=== PATIENT | female | born 1925 | race Caucasian/White ===

== ENCOUNTER 2016-08-03 16:57 | Inpatient (IN) | payer MEDICARE, MEDICAID ==
[~2016-08-03] VITALS: Ht 165.1 cm; Wt 66.2 kg
[~2016-08-03 16:57] MED LIST: CLON0.1T PO; ESOM40CA PO; FLUT1DIS3 IH; LORA-258 PO; MEGE400O4 PO; OLOP2.5D OP; TIOT18CA3 IH
[2016-08-03 17:30] VITALS: BP 140/66
--- NOTE | 2016-08-03 17:30 | NUR ---
MS TIE BUYER 89 YEARS OLD FEMALE, DIRECT ADMIT. PATIENT IS ACCOMPANIED BY HARRAYMOND-FAMILY FROM APPT WITH DR. HERNANDEZ'S OFFFICE TODAY. PATIENT IS AMBULATORY WITH CANE, A/O X1 WITH CONFUSION. HX OF DEMENTIA. HX PROVIDED BY HARUT-FAMILY MEMBER. CALLED SPOKE TO DR. HERNANDEZ, VERIFIED ORDERS NOTED AND ACKNOWLEDGED. ASSISTED PATIENT TO HER ROOM, V/S TAKEN AND RECORDED, NO C/O SHORTNESS OF BREATH. SATING 93% IN RA, WILL PLACE ON OXYGEN VIA NC 2L/MIN TO KEEP OXYGEN > = 92% ORDERED. CALL LIGHT WITHIN REACH, BED LOW AND LOCKED, SIDE RAILS UP X2. WILL PROVIDE 1:1 SITTER ORDERED. BEVERLY-FAMILY AT THE BEDSIDE, HELPING WITH THE TRANSLATION DURING ADMISSION PROCESS.
[2016-08-03] MEDS ORDERED: QUET25TA PO (17:39)
[2016-08-03] MEDS ORDERED: ALBU2TAB4 PO (17:39)
[2016-08-03] MEDS ORDERED: MEMA10TA PO (17:39)
[2016-08-03] MEDS ORDERED: ESCI10TA PO (17:39)
[2016-08-03] MEDS ORDERED: ACET-2605 PO (17:40)
[2016-08-03 18:00] VITALS: BP 140/66
[2016-08-03] MEDS ORDERED: ACETAMINOPHEN 325 MG TABLET PO PRN (18:00)
[2016-08-03] MEDS ORDERED: ONDANSETRON HCL/PF 4 MG/2 ML VIAL IV PRN (18:00)
[2016-08-03] MEDS ORDERED: ALBUTEROL HALF STRENGTH 1.25 MG/3 ML VIAL.NEB NEB PRN (18:00)
[2016-08-03] MEDS ORDERED: CLONIDINE HCL 0.1 MG TABLET PO PRN (18:00)
--- NOTE | 2016-08-03 18:00 | NUR ---
INSERTED ZAMORANO CATH TO GRAVITY. URINE COLLECTED AND SEND TO LAB ORDERED. IV GAUGE 22 INSERTED IN LFA WITH GOOD BLOOD RETURN, PATIENT TOLERATED WELL. SKIN INTACT, ABDOMEN SOFT AND MILDLY DISTENDED, NO C/O CONSTIPATION. WILL CONT TO MONITOR.
[2016-08-03 18:14] LABS: BASOPHILS % (AUTO) 0.4 % (0.0-2.0); EOSINOPHILS # (AUTO) 0.2 /CMM (0.0-0.7); EOSINOPHILS % (AUTO) 1.4 % (0.0-6.0); HEMATOCRIT 35 % (33-45); HEMOGLOBIN 11.4 g/dL (11.5-14.8); LYMPHOCYTES # (AUTO) 1.8 /CMM (0.8-4.8); LYMPHOCYTES % (AUTO) 16.7 % (20.0-44.0); MEAN CORPUSCULAR HEMOGLOBIN 30 PG (26.0-33.0); MEAN CORPUSCULAR HGB CONC 33 g/dl (31.0-36.0); MEAN CORPUSCULAR VOLUME 91 fL (82-100); MONOCYTES # (AUTO) 0.9 /CMM (0.1-1.30); MONOCYTES % (AUTO) 8.6 % (2.0-12.0); NEUTROPHILS % (AUTO) 72.9 % (43.0-81.0); PLATELET COUNT (AUTO) 241 /CMM (150-450); RDW COEFFICIENT OF VARIATION 14.1 (11.5-15.0); RED BLOOD CELL COUNT(AUTO) 3.84 MIL/uL (4.0-5.2); WHITE BLOOD COUNT (AUTO) 10.9 K/uL (4.3-11.0)
[2016-08-03 19:03] LABS: CALCIUM, SERUM 8.4 mg/dL (8.5-10.1); CREATININE 1.5 mg/dL (0.6-1.3); POTASSIUM 3.6 mmol/L (3.5-5.1)
[2016-08-03 19:09] LABS: ALBUMIN 3.4 g/dL (3.4-5.0); BILIRUBIN,TOTAL 0.3 mg/dL (0.2-1.0); TOTAL PROTEIN, SERUM 7.5 g/dL (6.4-8.2)
[2016-08-03] MEDS ORDERED: SECONDARY IV SET 1 EA INFUS.SET MC ONE (19:23)
[2016-08-03] MEDS ORDERED: IV SET PRIMARY PUMP SET 1 EA INFUS.SET MC ONE ×2 (19:24→19:25)
--- NOTE | 2016-08-03 19:30 | NUR ---
MS RN NOTES RECEIVED RESTING COMFORTABLY ON BED,SPEAK FARSI,DEMENTED,SITTER AT BEDSIDE FOR SAFETY.O2 IN USED TO KEEP O2 SAT ABOVE 90%.CALL LIGHT IN REACH,NEEDS ANTICIPATED..
--- NOTE | 2016-08-03 19:30 | NUR ---
MS RN CLOSING NOTES PATIENT IN BED, NOT IN DISTRESS. ON OXYGEN AT 2L/MIN VIA NC, NO SOB NOTED. ENDORSED TO GUN REPAIR CLERK RN FOR CONTINUITY OF CARE.
[2016-08-03] MEDS: IV D5/ 0.9% NACL 1,000 ML IV SCH (19:48)
--- NOTE | 2016-08-03 19:55 | NUR ---
MS RN NOTES STARTED ON D5NS 1LITER AT 75ML/HR RATE VIA IV PUMP ON LFA,SITE PATENT.
[2016-08-03 20:00] VITALS: BP 99/51
[2016-08-03] MEDS ORDERED: LEVOFLOXACIN 500 MG /D5W 100ML 500 MG in PREMIX 1 EA IV SCH (20:00)
--- NOTE | 2016-08-03 20:00 | NUR ---
MS RN NOTES STARTED ON LEVAQUIN 500MG IVPB ORDERED
[2016-08-03] MEDS: methylPREDNISolone SOD SUCC 125 MG/2ML VIAL IV SCH (21:21)
[2016-08-03] MEDS: QUETIAPINE FUMARATE 25 MG TABLET PO SCH (21:21)
[2016-08-03] MEDS: ALBUTEROL HALF STRENGTH 1.25 MG/3 ML VIAL.NEB NEB SCH (21:29)
--- NOTE | 2016-08-03 21:30 | NUR ---
MS RN NOTES RT AT BEDSIDE ADMINISTERING BREATHING SCHEDULED.
[2016-08-03] MEDS ORDERED: LORAZEPAM 0.5 MG TABLET PO PRN (22:00)
[2016-08-04] MEDS: ALBUTEROL HALF STRENGTH 1.25 MG/3 ML VIAL.NEB NEB SCH ×3 (02:00→20:14)
[2016-08-04] MEDS: methylPREDNISolone SOD SUCC 125 MG/2ML VIAL IV SCH ×3 (04:59→21:24)
--- NOTE | 2016-08-04 06:57 | NUR ---
MS RN NOTES NO EPISODE OF SOB.OOB EARLY TO BEDSIDE CHAIR,O2 IN USED.IVF INFUSING.IN NO ACUTE DISTRESS.WILL ENDORSE TO DAY NURSE FOR REINIER
--- NOTE | 2016-08-04 07:30 | NUR ---
RN INITIAL NOTES REPORT WAS RECEIVED. PT IS AWAKE AND SITTING IN THE CHAIR AT BEDSIDE. PT SPEAKS FARSI ONLY. IN NO APPARENT DISTRESS, SO SOB WITH NC. IV ACCESS IN LFA #22 WITH D5NS RUNNING AT 75 ML/HR. SITTER AT BED SIDE. WILL CONTINUE TO MONITOR
[2016-08-04 07:36] LABS: APPEARANCE,URINE CLOUDY (CLEAR); BILIRUBIN,URINE NEGATIVE (NEGATIVE); BLOOD, URINE NEGATIVE Ery/uL (NEGATIVE); COLOR,URINE YELLOW (YELLOW); KETONES,URINE NEGATIVE (NEGATIVE); LEUKOCYTE ESTERASE ,URINE NEGATIVE (NEGATIVE); NITRITE, URINE NEGATIVE (NEGATIVE); PROTEIN,URINE NEGATIVE (NEGATIVE); UGLUCOSE NEGATIVE (NEGATIVE); UROBILINOGEN,URINE 0.2 EU/dL (0.2)
[2016-08-04 08:00] VITALS: BP 154/72
[2016-08-04] MEDS: ALBUTEROL SULFATE 2 MG TABLET PO SCH ×2 (08:51→17:16)
[2016-08-04] MEDS: ESCITALOPRAM OXALATE (10 MG) 10 MG TABLET PO SCH (08:51)
[2016-08-04] MEDS: MEMANTINE HCL 5 MG TABLET PO SCH (08:51)
[2016-08-04] MEDS: PANTOPRAZOLE 40 MG TABLET.DR PO SCH (08:51)
[2016-08-04] MEDS: FLUTICASONE/SALMETEROL DISKUS IH SCH ×2 (08:52→17:16)
[2016-08-04] MEDS: CYANOCOBALAMIN 1,000 MCG/ML VIAL IM SCH (08:52)
[2016-08-04 08:53] LABS: BACTERIA,URINE Few /HPF (None Seen); RBC,URINE NONE SEEN /HPF (0-2); WBC,URINE 0-2 /HPF (0-3)
[2016-08-04 08:54] LABS: SQUAMOUS EPITHELIAL CELL,UR Few /HPF (None Seen); URINE AMORPHOUS URATE Many /HPF (None Seen)
[2016-08-04] MEDS ORDERED: TIOTROPIUM BROMIDE 6 CAP/BOX CAP.W.DEV IH SCH (09:00)
--- NOTE | 2016-08-04 09:21 | NUR ---
MS/RN E-signature Dr Meade made aware that patients admit to order needs to be electronically signed.
[2016-08-04] MEDS: IV D5/ 0.9% NACL 1,000 ML IV SCH ×2 (11:53→21:37)
[2016-08-04 16:00] VITALS: BP 132/69
[2016-08-04 16:10] VITALS: BP 132/69
--- NOTE | 2016-08-04 18:37 | NUR ---
MS RN CLOSING NOTES PT IS ALERT & ORIENTED X 2, SEEMS TO BE CONFUSED AT TIMES. FARSI AND CHINESE SPEAKING. PT IS IN BED RESTING. BED IS IN LOW POSITION AND CALL LIGHT IS WITHIN REACH. PT IS ABLE TO AMBULATE WITH ASSISTANCE. IV ACCESS ON D5NS @75 ML/HR ON LEFT FOREARM #22. PT HAS NOT BEEN WANTING TO EAT MUCH DURING MEALS AND HAVE HAD TO ORDER SANDWICHES IN BETWEEN. ECHOCARDIOGRAM WAS DONE AND RESULTS ARE PENDING. DAUGHTER WOULD LIKE TO BE CONTACTED WITH ANY CHANGES, PHONE NUMBER IS POSTED ON THE WHITE BOARD. WILL HAND OFF REPORT TO RADIOLOGY TECHNOLOGIST
--- NOTE | 2016-08-04 19:30 | NUR ---
MS RN NOTES RECEIVED PT SITTING UP IN CHAIR, AWAKE, A/O X 2, FARSI / PASHTO SPEAKING, NO DISTRESS, NO SOB , ON O2 @ 3LPM DAVIAN WELL. DENIES ANY PAIN OR DISCOMFORT. IV SITE ON LFA LEAKING AT THIS TIME, INSERTED IV G22 ON LEFT HAND , X 1 ATTEMPT, WITH GOOD VENOUS RETURN. PT DAVIAN WELL. ALL NEEDS ATTENDED , CALL LIGHT WITHIN REACH,. SAFETY PRECAUTIONS OBSERVED. SITTER AT BEDSIDE. WILL CONTINUE TO MONITOR.
[2016-08-04 20:00] VITALS: BP 132/55
[2016-08-04] MEDS: LEVOFLOXACIN 250 MG /D5W 50 ML 250 MG in PREMIX 1 EA IV SCH (20:18)
--- NOTE | 2016-08-04 21:24 | NUR ---
SOLU- MEDROL 60 MG = 0.96 GIVEN , REMAINING MEDICATION WASTED, WITNESSED BY ARNAUD STEIN .
[2016-08-04] MEDS: QUETIAPINE FUMARATE 25 MG TABLET PO SCH (21:35)
[2016-08-04 22:00] VITALS: BP 132/55
[2016-08-05] MEDS: methylPREDNISolone SOD SUCC 125 MG/2ML VIAL IV SCH ×2 (05:16→21:33)
--- NOTE | 2016-08-05 06:44 | NUR ---
MS RN NOTES PT IN BED, ASLEEP AT THIS TIME. AROUSES EASILY A/O X 3, FARSI / PALESTINIAN SPEAKING, NO DISTRESS, NO SOB , ON O2 @ 2LPM DAVIAN WELL. NO S/S OF ANY PAIN OR DISCOMFORT. IV SITE ON LEFT HAND G # 22. F/C IS INTACT AND PATENT DRAINING WELL WITH YELLOW URINE, NO HEMATURIA NOTED. ALL NEEDS ATTENDED , CALL LIGHT WITHIN REACH. SAFETY PRECAUTIONS OBSERVED. SITTER AT BEDSIDE. WILL ENDORSE TO NEXT SHIFT FOR REINIER.
[2016-08-05 08:00] VITALS: BP 147/63
[2016-08-05] MEDS: ESCITALOPRAM OXALATE (10 MG) 10 MG TABLET PO SCH (08:03)
[2016-08-05] MEDS: CYANOCOBALAMIN 1,000 MCG/ML VIAL IM SCH (08:03)
[2016-08-05] MEDS: MEMANTINE HCL 5 MG TABLET PO SCH (08:03)
[2016-08-05] MEDS: PANTOPRAZOLE 40 MG TABLET.DR PO SCH (08:03)
[2016-08-05] MEDS: ALBUTEROL SULFATE 2 MG TABLET PO SCH ×2 (08:03→17:22)
[2016-08-05] MEDS: FLUTICASONE/SALMETEROL DISKUS IH SCH ×2 (08:04→17:53)
[2016-08-05 08:29] VITALS: BP 147/63
[2016-08-05] MEDS: ALBUTEROL HALF STRENGTH 1.25 MG/3 ML VIAL.NEB NEB SCH ×3 (10:29→19:39)
--- NOTE | 2016-08-05 11:30 | NUR ---
MS/RN S/B Dr Meade Seen by Dr Meade - mahan catheter to be removed, heplock fluids but continue with IVAB. Solu-medrol dosages to be tapered, PT eval.
--- NOTE | 2016-08-05 14:45 | NUR ---
MS/RN Espinoza removed Espinoza catheter removed. IV fluids heplocked.
[2016-08-05 16:00] VITALS: BP 138/79
[2016-08-05] MEDS ORDERED: BISACODYL (5 MG) 5 MG TABLET.DR PO PRN (16:30)
[2016-08-05] MEDS: DOCUSATE SODIUM 100 MG CAPSULE PO SCH (17:22)
--- NOTE | 2016-08-05 18:17 | NUR ---
MS RN CLOSING NOTES HAND OFF REPORT WILL BE GIVEN TO SUPPLIER QUALITY RN.PT IS ALERT AND ORIENTED X3. DENIES ANY PAIN AT THIS MOMENT. IV FLUIDS HAVE BEEN HEP-LOCKED. ZAMORANO CATHETER HAS BEEN REMOVED AND PT HAS URINATED X3 SINCE THEN. PT IS 1:1 SITTER, IS SITTING UP IN THE CHAIR AT THIS MOMENT. NO SIGNS OF SOB. CONTINUE TO MONITOR FOR ANY CHANGES.
--- NOTE | 2016-08-05 19:38 | NUR ---
MS RN NOTES RECEIVED PT IN BED, AWAKE, A/O X 3, BENINESE / FARSI SPEAKING. STABLE AT THIS TIME, LEFT HAND IV SITE PULLED OUT BY THE PT, PRESSURE APPLIED. NO BLEEDING NOTED. INSERTED IV ON LFA X 1, G# 22, WITH GOOD VENOUS RETURN. NO S/S OF PAIN OR DISCOMFORT. ALL NEEDS ATTENDED. ON 1:1 SITTER FOR SAFETY. CALL LIGHT WITHIN REACH. SAFETY PRECAUTIONS OBSERVED. WILL CONTINUE TO MONITOR.
[2016-08-05 20:25] VITALS: BP 122/55
[2016-08-05] MEDS ORDERED: SECONDARY IV SET 1 EA INFUS.SET MC ONE (20:32)
[2016-08-05] MEDS: LEVOFLOXACIN 250 MG /D5W 50 ML 250 MG in PREMIX 1 EA IV SCH (20:33)
[2016-08-05] MEDS: QUETIAPINE FUMARATE 25 MG TABLET PO SCH (21:37)
[2016-08-05 22:00] VITALS: BP 122/55
--- NOTE | 2016-08-06 00:30 | NUR ---
MS RN NOTES PT IN BED , SLEEPING AT THIS TIME,. STABLE. SITTER AT BED SIDE FOR SAFETY. WILL CONTINUE TO MONITOR.
--- NOTE | 2016-08-06 06:26 | NUR ---
MS RN NOTES PT IN BED, ASLEEP, AROUSES EASILY A/O X 3, PANAMANIAN / FARSI SPEAKING. STABLE AT THIS TIME. IV ON LFA G# 22, INTACT AND PATENT. NO S/S OF INFILTRATION NOTED. NO S/S OF PAIN OR DISCOMFORT. AMBULATORY, WALKS TO THE BATHROOM WITH ASSISTANCE. ON CARDIAC DIET, DAVIAN WELL. ALL NEEDS ATTENDED. ON 1:1 SITTER FOR SAFETY. CALL LIGHT WITHIN REACH. SAFETY PRECAUTIONS OBSERVED. WILL ENDORSE TO NEXT SHIFT FOR REINIER.
--- NOTE | 2016-08-06 07:20 | NUR ---
MS RN NOTE REPORT RECEIVED AT THE BEDSIDE. PATIENT IS SLEEPING. NO SOB OR DISTRESS NOTED AT THIS TIME. PATIENT DOES NOT APPEAR TO BE IN PAIN. BED IN A LOW POSITION, CALL LIGHT WITHIN PATIENT REACH. WILL CONTINUE TO MONITOR.
[2016-08-06 08:00] VITALS: BP 141/71
[2016-08-06] MEDS: methylPREDNISolone SOD SUCC 125 MG/2ML VIAL IV SCH (08:14)
[2016-08-06] MEDS: ALBUTEROL SULFATE 2 MG TABLET PO SCH (08:15)
[2016-08-06] MEDS: PANTOPRAZOLE 40 MG TABLET.DR PO SCH (08:15)
[2016-08-06] MEDS: DOCUSATE SODIUM 100 MG CAPSULE PO SCH (08:15)
[2016-08-06] MEDS: MEMANTINE HCL 5 MG TABLET PO SCH (08:15)
[2016-08-06] MEDS: ESCITALOPRAM OXALATE (10 MG) 10 MG TABLET PO SCH (08:15)
[2016-08-06] MEDS: FLUTICASONE/SALMETEROL DISKUS IH SCH (08:15)
[2016-08-06] MEDS: CYANOCOBALAMIN 1,000 MCG/ML VIAL IM SCH (08:15)
[2016-08-06] MEDS: ALBUTEROL HALF STRENGTH 1.25 MG/3 ML VIAL.NEB NEB SCH (10:26)
--- NOTE | 2016-08-06 13:14 | NUR ---
MS RN NOTES CALLED AGAIN AND SPOKE TO DAUGHTER EMETERIO. DAUGHTER STATES THAT THE PATIENT'S NEPHEW OR HERSELF WOULD BE COMING TO ROADABILITY MACHINE OPERATOR THE PATIENT LATER TODAY, BUT COULD NOT SPECIFY A TIME.
--- NOTE | 2016-08-06 13:51 | NUR ---
MS ROPE MACHINE SETTER NOTE DISCHARGE INSTRUCTIONS GIVEN TO THE PATIENT AND HER NEPHEW AND ABLE TO UNDERSTAND. BELONGINGS ACCOUNTED FOR AND PAPERWORK SIGNED. IV DISCONNECTED AND PRESSURE APPLIED. NO BLEEDING NOTED AT THE SITE. VITALS CHECKED AND RECORDED. PATIENT REFUSED DISCHARGE PHOTOS AND PLACED HER HAND IN FRONT OF THE CAMERA WHEN PHOTOS WERE ATTEMPTED. HER NEPHEW ALSO STATES SHE DOES NOT WANT THEM. EXPLAINED TO IMPORTANCE OF THE PHOTOS, BUT THE PATIENT STILL REFUSES. PRESCRIPTION GIVEN TO THE PATIENT WITH INSTRUCTION ON TAKING. PATIENT LEFT IN STABLE CONDITION, VIA WHEEL CHAIR TO HOME.
== END 2016-08-06 13:50 | disposition home or self-care (01) | DRG 191 ==
LOC: MEDSG2 16:57
PROVIDERS: ADMIT Legal Medicine; ATTEND Legal Medicine
DX: J44.1 Chronic obstructive pulmonary disease with (acute) exacerbation (principal); I13.0 Hypertensive heart and chronic kidney disease with heart failure and stage 1 through stage 4 chronic kidney disease, or unspecified chronic kidney disease; F03.90 Unspecified dementia, unspecified severity, without behavioral disturbance, psychotic disturbance, mood disturbance, and anxiety; R09.02 Hypoxemia; N18.3 Chronic kidney disease, stage 3 (moderate)
CPT/HCPCS: 36415; 71020-TC; 80053-TC; 81000-TC; 85025-TC; 87040-TC; 87081-TC; 87086-TC; 93307-TC; 94799-TC; 97001-TC; A4216; J1956; J2930; J3420; J7042; Z7610

== ENCOUNTER 2017-01-04 11:47 | Inpatient (IN) | payer MEDICARE, MEDICAID ==
[~2017-01-04] VITALS: Ht 157.5 cm; Wt 68.0 kg
[~2017-01-04 11:47] MED LIST changes: +ACET-2605 PO; +ALBU2TAB4 PO; +ESCI10TA PO; -ESOM40CA PO; -MEGE400O4 PO; +MEMA10TA PO; -OLOP2.5D OP; +QUET25TA PO
--- NOTE | 2017-01-04 11:50 | NUR ---
BBRA 89 FROM HOME FOR SOB THIS AM, HX OF ASTHMA BREATHING TX GIVEN IN FIELD WITH RELIEF. PLACED ON MONITOR. AWAITING MD ORDER. PT HAS AND #20 G IV ACCESS. BLOOD SAMPLE COLLECTED SENT TO LAB
[2017-01-04] MEDS ORDERED: IPRATROPIUM NEB FS 0.5 MG/2.5 ML AMPUL.NEB NEB ONE (12:00)
[2017-01-04] MEDS ORDERED: predniSONE 20 MG TABLET PO ONE (12:00)
[2017-01-04] MEDS ORDERED: ALBUTEROL FS 2.5 MG/3 ML VIAL.NEB NEB ONE ×2 (12:00→13:00)
[2017-01-04 12:08] LABS: BASOPHILS # (AUTO) 0.3 /CMM (0.0-0.2); BASOPHILS % (AUTO) 2.7 % (0.0-2.0); EOSINOPHILS # (AUTO) 0.5 /CMM (0.0-0.7); EOSINOPHILS % (AUTO) 4.7 % (0.0-6.0); HEMATOCRIT 34 % (33-45); HEMOGLOBIN 10.9 g/dL (11.5-14.8); LYMPHOCYTES # (AUTO) 2.8 /CMM (0.8-4.8); LYMPHOCYTES % (AUTO) 27.6 % (20.0-44.0); MEAN CORPUSCULAR HEMOGLOBIN 29 PG (26.0-33.0); MEAN CORPUSCULAR HGB CONC 33 g/dl (31.0-36.0); MEAN CORPUSCULAR VOLUME 88 fL (82-100); MONOCYTES # (AUTO) 0.5 /CMM (0.1-1.30); MONOCYTES % (AUTO) 4.6 % (2.0-12.0); NEUTROPHILS % (AUTO) 60.4 % (43.0-81.0); PLATELET COUNT (AUTO) 264 /CMM (150-450); RDW COEFFICIENT OF VARIATION 13.9 (11.5-15.0); RED BLOOD CELL COUNT(AUTO) 3.83 MIL/uL (4.0-5.2); WHITE BLOOD COUNT (AUTO) 10.1 K/uL (4.3-11.0)
[2017-01-04] MEDS ORDERED: predniSONE 20 MG TABLET ONE (12:09)
--- NOTE | 2017-01-04 12:10 | NUR ---
CALLED RT FOR BREATHING TX
--- NOTE | 2017-01-04 12:10 | NUR ---
ATHLETIC TRAINER AT BEDSIDE
[2017-01-04] MEDS ORDERED: IPRATROPIUM NEB FS 0.5 MG/2.5 ML AMPUL.NEB ONE (12:16)
[2017-01-04] MEDS ORDERED: ALBUTEROL FS 2.5 MG/3 ML VIAL.NEB ONE ×2 (12:16→12:48)
[2017-01-04 12:18] LABS: CARBON DIOXIDE 27 mmol/L (21-32); CHLORIDE 107 mmol/L (98-107); CREATININE 1.3 mg/dL (0.6-1.3); GLUCOSE 101 mg/dL (74-106); POTASSIUM 5.4 mmol/L (3.5-5.1); SODIUM SERUM 140 mmol/L (136-145); UREA NITROGEN, BLOOD 24 mg/dL (7-18)
[2017-01-04 12:26] LABS: TROPONIN I < 0.017 ng/mL (0.00-0.056)
[2017-01-04] MEDS ORDERED: IV NS 0.9% 500 ML BAG IV ONE (12:30)
[2017-01-04] MEDS ORDERED: IV NS 0.9% 1,000 ML BAG IV ONE (13:00)
[2017-01-04] MEDS ORDERED: AZITHROMYCIN 500 MG in IV D5W 250 ML IV ONE (13:00)
[2017-01-04] MEDS ORDERED: CEFTRIAXONE 1GM BAG (ER ONLY) 50 ML IV ONE ×2 (13:00→13:26)
[2017-01-04 13:13] LABS: APPEARANCE,URINE Clear (CLEAR); BILIRUBIN,URINE Negative (NEGATIVE); BLOOD, URINE Moderate Ery/uL (NEGATIVE); COLOR,URINE Yellow (YELLOW); KETONES,URINE Negative (NEGATIVE); LEUKOCYTE ESTERASE ,URINE Negative (NEGATIVE); NITRITE, URINE Negative (NEGATIVE); PROTEIN,URINE Negative (NEGATIVE); UGLUCOSE Negative (NEGATIVE); UROBILINOGEN,URINE 0.2 EU/dL (0.2)
[2017-01-04] MEDS ORDERED: MEGE40TA PO (13:17)
[2017-01-04] MEDS ORDERED: FURO20TA4 PO (13:17)
[2017-01-04] MEDS ORDERED: VALS160T2 PO (13:17)
[2017-01-04] MEDS ORDERED: GUAI118L27 PO (13:17)
[2017-01-04] MEDS ORDERED: ESOM40CA PO (13:17)
[2017-01-04] MEDS ORDERED: OLOP2.5D EACHEYE (13:17)
[2017-01-04 13:21] LABS: BACTERIA,URINE Few /HPF (None Seen); SQUAMOUS EPITHELIAL CELL,UR Few /HPF (None Seen)
--- NOTE | 2017-01-04 13:25 | NUR ---
Paged Dr. Loki Meade.
--- NOTE | 2017-01-04 13:51 | NUR ---
GIVEN REPORT TO EDSON LARES . TELEMETRY ROOM [address]. DR HERNANDEZ ADMITTING
--- NOTE | 2017-01-04 13:55 | NUR ---
Repaged Matthew Ravi
[2017-01-04 15:00] VITALS: BP 125/69
--- NOTE | 2017-01-04 15:00 | NUR ---
pt. adm. to rm [id number] at bedside.
--- NOTE | 2017-01-04 15:40 | NUR ---
hooked up to tele sr rate of 86.
[2017-01-04 16:00] VITALS: BP 125/69
[2017-01-04] MEDS ORDERED: ALBUTEROL FS 2.5 MG/3 ML VIAL.NEB NEB PRN (16:00)
[2017-01-04] MEDS ORDERED: ACETAMINOPHEN 325 MG TABLET PO PRN (16:00)
[2017-01-04] MEDS ORDERED: LEVOFLOXACIN 500 MG /D5W 100ML 500 MG in PREMIX 1 EA IV ONE (16:00)
[2017-01-04] MEDS ORDERED: IPRATROPIUM NEB FS 0.5 MG/2.5 ML AMPUL.NEB NEB PRN (16:00)
--- NOTE | 2017-01-04 18:30 | NUR ---
pt. pulled out iv restarted in rt. forearm #22.
--- NOTE | 2017-01-04 19:00 | NUR ---
pt. refused pump stockings.
--- NOTE | 2017-01-04 20:00 | NUR ---
Patient is in her bed with the daughter at the bedside. Patient is refusing the Compression stockings, DT they adgitate her. Ambulated her to the bathroom with 1 nurse and using a walker, not steady on legs but with assist did well going to the bathroom skin is clean and clear. She has expiratory audible wheezing
[2017-01-04] MEDS: ALBUTEROL FS 2.5 MG/3 ML VIAL.NEB NEB SCH (20:09)
[2017-01-04] MEDS: IPRATROPIUM NEB FS 0.5 MG/2.5 ML AMPUL.NEB NEB SCH (20:09)
[2017-01-04 20:26] VITALS: BP 131/62
[2017-01-04] MEDS: methylPREDNISolone SOD SUCC 40 MG/ML VIAL IV SCH (21:27)
--- NOTE | 2017-01-04 21:50 | NUR ---
Called MD Meade for reasons the patient is restless and attempting to get OOB. Her dtr stated her MOM does this at night. At home she take Lorazepam 0.5 mg PO and this effective. MD ordered the medication was given and effectie
[2017-01-04] MEDS ORDERED: LORAZEPAM 0.5 MG TABLET ONE (22:10)
[2017-01-04] MEDS: LORAZEPAM 0.5 MG TABLET PO PRN (22:13)
[2017-01-04 22:58] VITALS: BP 131/62
[2017-01-05 00:23] VITALS: BP_SYST 140; BP_SYST 146; BP_DIAS 65; BP_DIAS 77
[2017-01-05] MEDS: IPRATROPIUM NEB FS 0.5 MG/2.5 ML AMPUL.NEB NEB SCH ×4 (01:17→19:40)
--- NOTE | 2017-01-05 03:09 | NUR ---
Patient as cooperative in follwing simple directions, but is forgetful and cannot be left alone if in a chair or on the tiolet. She has exp wheezing but no treap distress. Sats 94% with 2 liters w/o 02 she sats 90%. Daughter stayd at here bedside throuh the night
[2017-01-05 03:56] VITALS: BP 145/73
[2017-01-05] MEDS: methylPREDNISolone SOD SUCC 40 MG/ML VIAL IV SCH ×3 (05:46→21:04)
[2017-01-05 06:26] LABS: BASOPHILS % (AUTO) 0.1 % (0.0-2.0); HEMATOCRIT 29 % (33-45); HEMOGLOBIN 9.9 g/dL (11.5-14.8); LYMPHOCYTES # (AUTO) 0.8 /CMM (0.8-4.8); LYMPHOCYTES % (AUTO) 12.2 % (20.0-44.0); MEAN CORPUSCULAR HEMOGLOBIN 30 PG (26.0-33.0); MEAN CORPUSCULAR HGB CONC 34 g/dl (31.0-36.0); MEAN CORPUSCULAR VOLUME 88 fL (82-100); MONOCYTES # (AUTO) 0.1 /CMM (0.1-1.30); NEUTROPHILS # (AUTO) 5.6 /CMM (1.8-8.9); NEUTROPHILS % (AUTO) 86.7 % (43.0-81.0); PLATELET COUNT (AUTO) 233 /CMM (150-450); RDW COEFFICIENT OF VARIATION 14.3 (11.5-15.0); RED BLOOD CELL COUNT(AUTO) 3.33 MIL/uL (4.0-5.2); WHITE BLOOD COUNT (AUTO) 6.5 K/uL (4.3-11.0)
[2017-01-05 06:39] LABS: CALCIUM, SERUM 8.7 mg/dL (8.5-10.1); CARBON DIOXIDE 25 mmol/L (21-32); CHLORIDE 106 mmol/L (98-107); CREATININE 1.2 mg/dL (0.6-1.3); GLUCOSE 167 mg/dL (74-106); POTASSIUM 5.2 mmol/L (3.5-5.1); SODIUM SERUM 140 mmol/L (136-145); UREA NITROGEN, BLOOD 22 mg/dL (7-18)
[2017-01-05 06:52] VITALS: BP 145/74
[2017-01-05] MEDS: ALBUTEROL FS 2.5 MG/3 ML VIAL.NEB NEB SCH ×3 (07:52→19:40)
[2017-01-05 08:00] VITALS: BP 158/85
--- NOTE | 2017-01-05 08:00 | NUR ---
CLINICAL DENTAL TECHNICIAN NOTES PATIENT IN BED RESTING NO SOB OR ACUTE DISTRESS NOTED. DAUGHTER AT BEDSIDE. PATIENT ALERT, ORIENTED X1. DENIES ANY PAIN OR DISCOMFORT. PERIPHERAL IV ON RIGHT ARM INTACT PATENT. BED IN LOW LOCKED POSITION. CALL LIGHT WITHIN REACH. WILL CONTINUE TO MONITOR.
[2017-01-05] MEDS: PANTOPRAZOLE 40 MG TABLET.DR PO SCH (08:11)
[2017-01-05] MEDS ORDERED: Medication Not On Formulary EA (Esomeprazole Mag Trihydrate (Nexium) 40 MG) PO SCH (11:00)
[2017-01-05] MEDS ORDERED: LORAZEPAM 0.5 MG TABLET PO SCH (11:00)
[2017-01-05] MEDS ORDERED: CLONIDINE HCL 0.1 MG TABLET PO PRN (11:00)
[2017-01-05] MEDS ORDERED: FLUTICASONE/SALMETEROL DISKUS IH SCH (11:00)
[2017-01-05] MEDS ORDERED: FUROSEMIDE 20 MG TABLET PO PRN (11:00)
[2017-01-05] MEDS ORDERED: GUAIFENESIN/D-METHORPHAN HB 5 ML UDC PO PRN (11:00)
--- NOTE | 2017-01-05 11:00 | NUR ---
RN NOTES PATIENT SEEN AND EVALUATED BY DR. HERNANDEZ ORDERS NOTED AND CARRIED OUT.
[2017-01-05] MEDS ORDERED: OLOPATADINE HCL 0.1% OPHTH BOTTLE EACHEYE SCH (11:30)
[2017-01-05] MEDS: ESCITALOPRAM OXALATE (10 MG) 10 MG TABLET PO SCH (11:52)
[2017-01-05] MEDS: QUETIAPINE FUMARATE 25 MG TABLET PO SCH ×2 (11:52→21:04)
[2017-01-05] MEDS: ALBUTEROL SULFATE 2 MG TABLET PO SCH ×2 (11:54→16:58)
[2017-01-05 16:00] VITALS: BP_SYST 142; BP_SYST 96; BP_DIAS 72; BP_DIAS 86
[2017-01-05] MEDS: OLOPATADINE HCL 0.1% OPHTH BOTTLE EACHEYE SCH (17:10)
--- NOTE | 2017-01-05 18:33 | NUR ---
RN NOTES PATIENT IN BED RESTING NO SOB OR ACUTE DISTRESS NOTED. ALL DUE MEDICATIONS ADMINISTERED. ALL NEEDS MET. PATIENT PERIPHERAL IV ON RIGHT FOREARM INTACT PATENT. BED IN LOW LOCKED POSITION CALL LIGHT WITHIN REACH. WILL ENDORSE CARE TO PM SHIFT.
--- NOTE | 2017-01-05 19:30 | NUR ---
RN NOTES RECEIVED PATIENT IN BED AWAKE, AO X 1, MEXICAN-SPEAKING. DAUGHTER AT BEDSIDE ABLE TO TRANSLATE. NO ACUTE DISTRESS NOTED. DENIES ANY PAIN AT THIS TIME. IV SITE PATENT, INTACT; FLUSHED. SAFETY REMINDERS GIVEN. ON LOW BED WITH BILATERAL UPPER SIDE RAILS UP. CALL LIGHT WITHIN EASY REACH. WILL CONTINUE TO MONITOR.
[2017-01-05 20:00] VITALS: BP 122/56
[2017-01-06] MEDS: IPRATROPIUM NEB FS 0.5 MG/2.5 ML AMPUL.NEB NEB SCH ×4 (01:13→19:45)
[2017-01-06] MEDS: methylPREDNISolone SOD SUCC 40 MG/ML VIAL IV SCH ×2 (05:08→21:51)
--- NOTE | 2017-01-06 06:15 | NUR ---
RN NOTES PATIENT ASLEEP, EASILY AROUSABLE. RESPIRATIONS EVEN. NO SIGNS OF PAIN NOTED. DUE MEDS GIVEN WITH NO ASE NOTED. NEEDS ATTENDED. REPOSITIONED Q 2 HOURS. SAFETY PRECAUTIONS AND COMFORT MEASURES IN PLACE. WILL GIVE REPORT TO DAY SHIFT FOR CONTINUITY OF CARE.
[2017-01-06 06:55] LABS: BASOPHILS % (AUTO) 0.1 % (0.0-2.0); EOSINOPHILS % (AUTO) 0.2 % (0.0-6.0); HEMATOCRIT 29 % (33-45); HEMOGLOBIN 9.8 g/dL (11.5-14.8); LYMPHOCYTES # (AUTO) 0.9 /CMM (0.8-4.8); LYMPHOCYTES % (AUTO) 8.8 % (20.0-44.0); MEAN CORPUSCULAR HEMOGLOBIN 29 PG (26.0-33.0); MEAN CORPUSCULAR HGB CONC 33 g/dl (31.0-36.0); MEAN CORPUSCULAR VOLUME 88 fL (82-100); MONOCYTES # (AUTO) 0.4 /CMM (0.1-1.30); MONOCYTES % (AUTO) 3.7 % (2.0-12.0); NEUTROPHILS # (AUTO) 8.6 /CMM (1.8-8.9); NEUTROPHILS % (AUTO) 87.2 % (43.0-81.0); PLATELET COUNT (AUTO) 259 /CMM (150-450); RDW COEFFICIENT OF VARIATION 14.9 (11.5-15.0); RED BLOOD CELL COUNT(AUTO) 3.34 MIL/uL (4.0-5.2); WHITE BLOOD COUNT (AUTO) 9.8 K/uL (4.3-11.0)
[2017-01-06 07:13] LABS: CALCIUM, SERUM 8.9 mg/dL (8.5-10.1); CARBON DIOXIDE 26 mmol/L (21-32); CHLORIDE 107 mmol/L (98-107); CREATININE 1.2 mg/dL (0.6-1.3); GLUCOSE 166 mg/dL (74-106); MAGNESIUM 2.2 mg/dL (1.8-2.4); POTASSIUM 5.1 mmol/L (3.5-5.1); SODIUM SERUM 141 mmol/L (136-145); UREA NITROGEN, BLOOD 26 mg/dL (7-18)
[2017-01-06] MEDS ORDERED: PANTOPRAZOLE 40 MG TABLET.DR PO SCH (07:30)
--- NOTE | 2017-01-06 08:00 | NUR ---
MS RN NOTES PATIENT IN BED RESTING NO SOB OR ACUTE DISTRESS NOTED. PERIPHERAL IV ON RIGHT FOREARM INTACT PATENT. BED IN LOW LOCKED POSITION. CALL LIGHT WITHIN REACH. WILL CONTINUE TO MONITOR.
[2017-01-06 08:18] VITALS: BP 140/78
[2017-01-06] MEDS: ALBUTEROL FS 2.5 MG/3 ML VIAL.NEB NEB SCH ×3 (08:29→19:45)
[2017-01-06] MEDS: ESCITALOPRAM OXALATE (10 MG) 10 MG TABLET PO SCH (09:18)
[2017-01-06] MEDS: MEMANTINE HCL 5 MG TABLET PO SCH (09:19)
[2017-01-06] MEDS: ALBUTEROL SULFATE 2 MG TABLET PO SCH ×2 (09:19→16:25)
[2017-01-06] MEDS: VALSARTAN 80 MG TABLET PO SCH (09:19)
[2017-01-06] MEDS: FLUTICASONE/VILANTEROL 1 EACH BLST.W.DEV IH SCH (09:20)
[2017-01-06] MEDS: PANTOPRAZOLE 40 MG TABLET.DR PO SCH (09:21)
[2017-01-06] MEDS: OLOPATADINE HCL 0.1% OPHTH BOTTLE EACHEYE SCH ×2 (09:22→16:26)
--- NOTE | 2017-01-06 10:00 | NUR ---
MS RN NOTES PATIENT SEEN BY DR. HERNANDEZ ORDERS NOTED AND CARRIED OUT.
[2017-01-06 16:00] VITALS: BP 144/76
[2017-01-06] MEDS: LEVOFLOXACIN 250 MG /D5W 50 ML 250 MG in PREMIX 1 EA IV SCH (16:24)
--- NOTE | 2017-01-06 17:00 | NUR ---
MS RN NOTES PATIENT NOTED GETTING OUT OF BED AND AGITATED AMBULATING WITHOUT ANY ASSISTANCE WITH POOR BALANCE. ORDERS OBTAINED FOR SITTER. PATIENT WITH SITTER AT BEDSIDE.
--- NOTE | 2017-01-06 18:18 | NUR ---
MS RN NOTES PATIENT IN BED RESTING NO SOB OR ACUTE DISTRESS NOTED. ON 2L OXYGEN VIA NASAL CANNULA. PERIPHERAL IV INTACT PATENT. ALL DUE MEDICATIONS ADMINISTERED. ALL NEEDS MET. SITTER AT BEDSIDE. WILL ENDORSE CARE TO PM SHIFT.
--- NOTE | 2017-01-06 19:30 | NUR ---
RN NOTES RECEIVED PATIENT IN BED AWAKE, AO X 1, VERBALLY RESPONSIVE. NO ACUTE DISTRESS NOTED. NO SIGNS OF PAIN NOTED. IV SITE PATENT, INTACT; FLUSHED. SITTER AT BEDSIDE. ON LOW BED WITH BILATERAL UPPER SIDE RAILS UP. CALL LIGHT WITHIN EASY REACH. WILL CONTINUE TO MONITOR.
[2017-01-06 20:00] VITALS: BP 133/70
--- NOTE | 2017-01-06 20:20 | NUR ---
ARNAUD NOTES REPORT GIVEN TO TARYN LARES FOR CONTINUITY OF CARE. Addendum: 01/06/17 at 2115 by JEANNETTE MUSE RN CORRECTION: MIGUELANGEL LARES
--- NOTE | 2017-01-06 20:36 | NUR ---
RN INITIAL MS NOTES RECEIVED PATIENT IN BED AWAKE, AO X 1, VERBALLY RESPONSIVE. NO ACUTE DISTRESS NOTED. NO SIGNS OF PAIN NOTED. IV SITE PATENT, INTACT; FLUSHED. SITTER AT BEDSIDE. ON LOW BED WITH BILATERAL UPPER SIDE RAILS UP. CALL LIGHT WITHIN EASY REACH. WILL CONTINUE TO MONITOR.
[2017-01-06] MEDS: QUETIAPINE FUMARATE 25 MG TABLET PO SCH (21:52)
[2017-01-07] MEDS: IPRATROPIUM NEB FS 0.5 MG/2.5 ML AMPUL.NEB NEB SCH ×4 (01:27→19:55)
--- NOTE | 2017-01-07 06:33 | NUR ---
RN CLOSING MS NOTES ENDORSED PATIENT IN BED AWAKE, AO X 1, VERBALLY RESPONSIVE. NO ACUTE DISTRESS NOTED. NO SIGNS OF PAIN NOTED. IV SITE PATENT, INTACT; FLUSHED. SITTER AT BEDSIDE. ON LOW BED WITH BILATERAL UPPER SIDE RAILS UP. CALL LIGHT WITHIN EASY REACH. WILL CONTINUE TO MONITOR.
[2017-01-07 07:30] VITALS: BP 123/62
[2017-01-07] MEDS: ALBUTEROL FS 2.5 MG/3 ML VIAL.NEB NEB SCH ×3 (07:40→19:55)
--- NOTE | 2017-01-07 07:47 | NUR ---
MS/RN NOTES PATIENT FOUND RESTING IN BED AWAKE AND ORIENTED X1-2, ABLE TO CARRY LIMITED CONVERSATION, IN NO APPARENT DISTRESS, RESPIRATIONS EVEN AND UNLABORED, ON 02 VIA NC, RECEIVED BREATHING TX EVERY 6 HOURS FOR SOB. PATIENT LOOKS CALM AND COMFORTABLE WITH 1:1 SITTER AT BEDSIDE. IV TO RIGHT FA INTACT AND PATENT. SAFETY MEASURES RENDERED, CALL LIGHT PLACED WITHIN EASY REACH. WILL CONTINUE TO MONITOR.
[2017-01-07 08:00] VITALS: BP 123/62
[2017-01-07] MEDS: methylPREDNISolone SOD SUCC 40 MG/ML VIAL IV SCH ×3 (08:32→20:00)
[2017-01-07] MEDS: PANTOPRAZOLE 40 MG TABLET.DR PO SCH (08:32)
[2017-01-07] MEDS: VALSARTAN 80 MG TABLET PO SCH (08:32)
[2017-01-07] MEDS: MEMANTINE HCL 5 MG TABLET PO SCH (08:33)
[2017-01-07] MEDS: ESCITALOPRAM OXALATE (10 MG) 10 MG TABLET PO SCH (08:33)
[2017-01-07] MEDS: OLOPATADINE HCL 0.1% OPHTH BOTTLE EACHEYE SCH ×2 (08:36→16:28)
[2017-01-07] MEDS: FLUTICASONE/VILANTEROL 1 EACH BLST.W.DEV IH SCH (08:37)
[2017-01-07] MEDS: ALBUTEROL SULFATE 2 MG TABLET PO SCH ×2 (08:37→16:28)
--- NOTE | 2017-01-07 12:24 | NUR ---
MS/RN NOTES PATIENT RESTING IN BED COMFORTABLY, NO S/S OF DISTRESS/DISCOMFORT NOTED. WILL CONTINUE TO MONITOR.
[2017-01-07] MEDS ORDERED: MAGNESIUM HYDROXIDE 30 ML UDC PO PRN (14:00)
--- NOTE | 2017-01-07 14:37 | NUR ---
MS/RN NOTES PATIENT HAD X1 LARGE BOWEL MOVEMENT
--- NOTE | 2017-01-07 18:42 | NUR ---
MS/RN NOTES PATIENT RESTING IN BED COMFORTABLY, NO S/S OF DISTRESS/DISCOMFORT. PATIENT DENIES ANY PAIN AT THIS TIME. PATIENTS SON AT BEDSIDE DISCUSSING PLAN OF CARE. ALL DUE MEDICATIONS GIVEN, ALL NEEDS MET AND ATTENDED. PATIENT STABLE. NO SIGNIFICANT CHANGES. SAFETY MEASURES RENDERED, CALL LIGHT PLACED WITHIN REACH. WILL ENDORSE CARE TO OFFICE MACHINERY OR EQUIPMENT INSTALLER FOR REINIER.
--- NOTE | 2017-01-07 19:00 | NUR ---
MS RN OPENING NOTES: PT IS RESTING IN BED COMFORTABLY WITH HOB ELEVATED. PT ON 2LPM VIA NC AND IS TOLERATING WELL. SITTER AT BEDSIDE. PT HAS IV ON R FOREARM 22G AND IS PATENT AND INTACT. PT CURRENTLY HEP LOCK. CALL LIGHT WITHIN PT'S REACH. BED KEPT IN LOW, LOCKED POSITION, AND SIDE RAILS X 2UP. PT IS A/OX1-2 AND CAN HAYDEN SPEAK MACANESE. WILL CONTINUE TO MONITOR PT.
[2017-01-07 20:00] VITALS: BP 138/77
--- NOTE | 2017-01-07 20:04 | NUR ---
MS RN NOTES: PER SON'S (HARRAYMOND) REQUEST, PT WAD ADMINISTERED MOM. WILL CONTINUE TO MONITOR PT FOR BOWEL MOVEMENTS.
[2017-01-07] MEDS: QUETIAPINE FUMARATE 25 MG TABLET PO SCH (21:13)
[2017-01-07] MEDS: LORAZEPAM 0.5 MG TABLET PO PRN (22:46)
--- NOTE | 2017-01-07 22:46 | NUR ---
MS RN NOTES: PT APPEARS TO BE AGITATED AND ANXIOUS. PT WAS ADMINISTERED ATIVAN 0.5MG PO. WILL CONTINUE TO MONITOR PT.
[2017-01-08] MEDS: IPRATROPIUM NEB FS 0.5 MG/2.5 ML AMPUL.NEB NEB SCH ×3 (01:17→13:42)
--- NOTE | 2017-01-08 06:37 | NUR ---
MS RN CLOSING NOTES: ALL NEEDS WERE ATTENDED AND ANTICIPATED FOR. PT IS RESTING IN BED COMFORTABLY WITH HOB ELEVATED. PT ON 2LPM VIA NC AND IS TOLERATING WELL. SITTER AT BEDSIDE. PT HAS IV ON R FOREARM 22G AND IS PATENT AND INTACT. R FOREARM COVERED WITH KERLIX TO PREVENT PT FROM PULLING HER IV. PT CURRENTLY HEP LOCK. CALL LIGHT WITHIN PT'S REACH. BED KEPT IN LOW, LOCKED POSITION, AND SIDE RAILS X 2UP. PT IS A/OX1-2 AND CAN HAYDEN SPEAK BRITISH. WILL ENDORSE TO AM NURSE FOR REINIER.
[2017-01-08 07:26] LABS: BASOPHILS % (AUTO) 0.2 % (0.0-2.0); HEMATOCRIT 30 % (33-45); HEMOGLOBIN 10.1 g/dL (11.5-14.8); LYMPHOCYTES # (AUTO) 1.8 /CMM (0.8-4.8); LYMPHOCYTES % (AUTO) 16.9 % (20.0-44.0); MEAN CORPUSCULAR HEMOGLOBIN 29 PG (26.0-33.0); MEAN CORPUSCULAR HGB CONC 33 g/dl (31.0-36.0); MEAN CORPUSCULAR VOLUME 88 fL (82-100); MONOCYTES # (AUTO) 0.8 /CMM (0.1-1.30); MONOCYTES % (AUTO) 7.5 % (2.0-12.0); NEUTROPHILS # (AUTO) 8.2 /CMM (1.8-8.9); NEUTROPHILS % (AUTO) 75.4 % (43.0-81.0); PLATELET COUNT (AUTO) 256 /CMM (150-450); RDW COEFFICIENT OF VARIATION 14.6 (11.5-15.0); RED BLOOD CELL COUNT(AUTO) 3.45 MIL/uL (4.0-5.2); WHITE BLOOD COUNT (AUTO) 10.9 K/uL (4.3-11.0)
[2017-01-08 07:33] LABS: CALCIUM, SERUM 8.9 mg/dL (8.5-10.1); CARBON DIOXIDE 30 mmol/L (21-32); CHLORIDE 104 mmol/L (98-107); CREATININE 1.2 mg/dL (0.6-1.3); GLUCOSE 124 mg/dL (74-106); MAGNESIUM 2.2 mg/dL (1.8-2.4); POTASSIUM 4.6 mmol/L (3.5-5.1); SODIUM SERUM 141 mmol/L (136-145); UREA NITROGEN, BLOOD 28 mg/dL (7-18)
--- NOTE | 2017-01-08 07:35 | NUR ---
RN: INITIAL NOTE RECEIVED PT A/OX1. SLIGHTLY CONFUSED. FAROESE SPEAKING. ON MS. USES DIAPER NEEDED, AND CAN AMBULATE WITH ASSISTANCE TO RESTROOM. SKIN INTACT. ON CARDIAC DIET. NO DISTRESS. NO SOB. NO PAIN NOTED. ON 2L NC SATING AT 95%. R FA #22 H/L. NO IV FLUIDS RUNNING. 1:1 SITTER. RESTING COMFORTABLY IN BED. CALL LIGHT WITHIN REACH.
[2017-01-08] MEDS: ALBUTEROL FS 2.5 MG/3 ML VIAL.NEB NEB SCH ×2 (07:45→13:42)
[2017-01-08 08:50] VITALS: BP 148/69
[2017-01-08] MEDS: ALBUTEROL SULFATE 2 MG TABLET PO SCH ×2 (08:50→16:12)
[2017-01-08] MEDS: FLUTICASONE/VILANTEROL 1 EACH BLST.W.DEV IH SCH (08:50)
[2017-01-08] MEDS: ESCITALOPRAM OXALATE (10 MG) 10 MG TABLET PO SCH (08:50)
[2017-01-08] MEDS: VALSARTAN 80 MG TABLET PO SCH (08:50)
[2017-01-08] MEDS: MEMANTINE HCL 5 MG TABLET PO SCH (08:50)
[2017-01-08] MEDS: OLOPATADINE HCL 0.1% OPHTH BOTTLE EACHEYE SCH ×2 (08:50→16:12)
[2017-01-08] MEDS: methylPREDNISolone SOD SUCC 40 MG/ML VIAL IV SCH (08:51)
[2017-01-08] MEDS: PANTOPRAZOLE 40 MG TABLET.DR PO SCH (08:51)
[2017-01-08] MEDS ORDERED: LEVO500T15 PO (10:46)
[2017-01-08] MEDS ORDERED: METH4TAB16 PO (10:46)
--- NOTE | 2017-01-08 11:28 | NUR ---
CHECKED O2 SATURATION WITH OUT 2L NC AFTER 10 MINS OF REMOVAL. PT O2 IS 88 TO 89%. AWATING RESPONSE FROM CASE MANAGEMENT FOR OXYGEN BEFORE D/C.
--- NOTE | 2017-01-08 13:25 | NUR ---
PER CASE MANAGEMENT. SINCE PT ALREADY HAS ORDER FOR O2 AT HOME. PT FAMILY SHOULD BRING O2 WITH THEM FOR D/C. BASED ON SON BEVERLY, MOM ONLY USES O2 WHEN SLEEPING ON PRN BASES.
[2017-01-08] MEDS: LEVOFLOXACIN 250 MG /D5W 50 ML 250 MG in PREMIX 1 EA IV SCH (16:12)
--- NOTE | 2017-01-08 18:14 | NUR ---
MS RN: CLOSING NOTE PT A/OX1. SLIGHTLY CONFUSED. WITH 1:1 SITTER. NO DISTRESS. NO SOB. NO PAIN NOTED. IV R FA. NO IV FLUIDS RUNNING. AMBULATES WITH ASSISTANCE. USES DIAPER. TOOK ALL MEDICATIONS ON TIME. NO ADVERSE REACTIONS NOTED. SCHEDULED TO D/C. AWATING SON BEVERLY TO [facility] FOR NEWSPAPER PHOTOGRAPHER. WILL ENDORSE TO FURNITURE REMOVALIST'S ASSISTANT IF PT DOES NOT LEAVE DURING SHIFT. RESTING COMFORTABLY IN BED. CALL LIGHT WITHIN REACH.
--- NOTE | 2017-01-08 19:01 | NUR ---
MS RN: DISCHARGE NOTE PT D/C HOME WITH HOME HEALTH. PT TAKEN BY SON BEVERLY IN PRIVATE CAR. TOOK ALL MEDICATIONS ON TIME. NO ADVERSE REACTIONS NOTED. A/OX1-2. SLIGHTLY CONFUSED. NO DISTRESS NOTED. NO PAIN NOTED. SKIN INTACT. IV ON R FA REMOVED. SITE CLEAR AND NO BLEEDING NOTED. ALL DISCHARGE PAPER WORK SIGNED BY SON. EDUCATION GIVEN TO SON ABOUT NEW PRESCRIPTIONS. ALL BELONGINGS ACCOUNTED FOR. DISCHARGE PACKET GIVEN TO SON.
== END 2017-01-08 19:00 | disposition home health service (06) | DRG 190 ==
LOC: ER 11:49 → TELE 14:19 → MED 01-05 08:46
PROVIDERS: ADMIT Legal Medicine; ATTEND Legal Medicine
DX: J44.1 Chronic obstructive pulmonary disease with (acute) exacerbation (principal); G93.41 Metabolic encephalopathy; J96.00 Acute respiratory failure, unspecified whether with hypoxia or hypercapnia; F03.90 Unspecified dementia, unspecified severity, without behavioral disturbance, psychotic disturbance, mood disturbance, and anxiety; E11.9 Type 2 diabetes mellitus without complications; I10 Essential (primary) hypertension; I25.10 Atherosclerotic heart disease of native coronary artery without angina pectoris; Z87.891 Personal history of nicotine dependence
CPT/HCPCS: 36415; 71010-TC; 80048-TC; 81000-TC; 83605-TC; 83735-TC; 84484-TC; 85025-TC; 87040-TC; 87081-TC; 87086-TC; 94799-TC; A4216; A4606; J0456; J0696; J1956; J2920; J3490; J7040; J7060; Z7610

== ENCOUNTER 2017-08-18 17:22 | Inpatient (IN) | payer MEDICARE, MEDICAID ==
[~2017-08-18] VITALS: Ht 157.5 cm; Wt 66.7 kg
[~2017-08-18 17:22] MED LIST changes: -ACET-2605 PO; +ESOM40CA PO; +FURO20TA4 PO; +GUAI-717 PO; +LEVO500T75 PO; +MEGE40TA PO; +METH4TAB16 PO; +OLOP2.5D EACHEYE; -TIOT18CA3 IH; +VALS160T2 PO
[2017-08-18] MEDS ORDERED: QUET25TA PO (17:56)
[2017-08-18] MEDS ORDERED: IBUP-1953 PO (17:56)
[2017-08-18] MEDS ORDERED: ATEN25TA PO (17:56)
[2017-08-18] MEDS ORDERED: PRED5TAB PO (17:56)
[2017-08-18 18:00] VITALS: BP 144/70
[2017-08-18] MEDS ORDERED: ONDANSETRON HCL/PF 4 MG/2 ML VIAL IV PRN (19:00)
[2017-08-18] MEDS ORDERED: ACETAMINOPHEN 325 MG TABLET PO PRN (19:00)
[2017-08-18] MEDS ORDERED: IV NS 0.9% 1,000 ML BAG IV PRN (19:00)
--- NOTE | 2017-08-18 19:00 | NUR ---
M/S RN - Admission Patient awake, A/O x 1-2, Sammarinese/Farsi speaking, son Jamie at bedside translating for the patient, denies abdominal pain, no evidence of resp. distress, on 3 lpm via NC, admitted for UTI/ALOC under Dr. Meade. IV line placed on the RAC 20 with good blood return, flushing well. Skin is intact, refused photo to be taken. All belongings verified and secured in the unit. Patient oriented to the unit and use of call light. All needs anticipated and met. Patient and son Jamie educated on the treatment plan. Admission orders noted and implemented. Fall and aspiration precautions initiated. Will continue to monitor closely and endorse to night nurse accordingly.
[2017-08-18 20:00] VITALS: BP 121/57
[2017-08-18 20:25] LABS: CALCIUM, SERUM 8.1 mg/dL (8.5-10.1); CARBON DIOXIDE 27 mmol/L (21-32); CHLORIDE 105 mmol/L (98-107); CREATININE 1.7 mg/dL (0.6-1.3); GLUCOSE 251 mg/dL (74-106); POTASSIUM 4.6 mmol/L (3.5-5.1); SODIUM SERUM 139 mmol/L (136-145); UREA NITROGEN, BLOOD 30 mg/dL (7-18)
[2017-08-18 20:26] LABS: ALANINE AMINOTRANSFERASE 19 U/L (12-78); ALBUMIN 2.8 g/dL (3.4-5.0); ALKALINE PHOSPHATASE 65 U/L (46-116); ASPARTATE AMINOTRANSFERASE 11 U/L (15-37); BILIRUBIN,TOTAL 0.2 mg/dL (0.2-1.0); TOTAL PROTEIN, SERUM 5.7 g/dL (6.4-8.2)
[2017-08-18] MEDS ORDERED: CLONIDINE HCL 0.1 MG TABLET PO PRN (20:30)
[2017-08-18] MEDS ORDERED: LORAZEPAM 0.5 MG TABLET PO PRN (20:30)
[2017-08-18] MEDS: IV NS 0.9% 1,000 ML IV PRN (20:32)
[2017-08-18] MEDS: ENOXAPARIN SODIUM 30 MG/0.3 ML DISP.SYRIN SQ SCH ×2 (21:00→22:31)
[2017-08-18 21:13] LABS: EOSINOPHILS % (AUTO) 1.2 % (0.0-6.0); HEMATOCRIT 31 % (33-45); HEMOGLOBIN 10.3 g/dL (11.5-14.8); LYMPHOCYTES # (AUTO) 1.3 /CMM (0.8-4.8); LYMPHOCYTES % (AUTO) 10.6 % (20.0-44.0); MEAN CORPUSCULAR HGB CONC 34 g/dl (31.0-36.0); MEAN CORPUSCULAR VOLUME 95 fL (82-100); MONOCYTES # (AUTO) 0.4 /CMM (0.1-1.30); MONOCYTES % (AUTO) 3.2 % (2.0-12.0); NEUTROPHILS # (AUTO) 10.4 /CMM (1.8-8.9); PLATELET COUNT (AUTO) 187 /CMM (150-450); RED BLOOD CELL COUNT(AUTO) 3.25 MIL/uL (4.0-5.2); WHITE BLOOD COUNT (AUTO) 12.3 K/uL (4.3-11.0)
[2017-08-18] MEDS: QUETIAPINE FUMARATE 25 MG TABLET PO SCH (22:31)
--- NOTE | 2017-08-19 04:52 | NUR ---
RN NOTES RECEIVED PT, AWAKE ON BED, A/OX2-3 RWANDAN/FARSI SPEAKING, DENIES PAIN, NO SOB, CALL LIGHT WITHIN REACH, SIDERAILSUPX2, CONTINUE TO MONITOR
--- NOTE | 2017-08-19 06:54 | NUR ---
RN NOTES AWAKE, MORNING CARE RENDERED, CALL LIGHT WITHIN REACH, SIDERAILSUPX2 , PT NEEDS ATTENDED
--- NOTE | 2017-08-19 07:25 | NUR ---
MS RN OPENING NOTES RECEIVED PT LAYING IN BED WITH HOB ELEVATED, SLEEPING COMFORTABLY. PT IS RESPONSIVE TO NAME AND TOUCH. RESPIRATIONS ARE EVEN AND UNLABORED AT THIS TIME. NO FACIAL GRIMACING OR MOANING NOTED. IV SITE INTACT, NO INFILTRATION NOTED. DRESSING KEPT CLEAN AND DRY. SAFETY MEASURES ARE IN PLACE. INSTRUCTED PT TO USE CALL LIGHT WHEN ASSISTANCE IS NEEDED, CALL LIGHT IS LEFT WITHIN REACH. WILL CONTINUE TO MONITOR THROUGHOUT SHIFT.
[2017-08-19 08:00] VITALS: BP 129/58
[2017-08-19] MEDS: ESCITALOPRAM OXALATE (10 MG) 10 MG TABLET PO SCH (08:19)
[2017-08-19] MEDS: PANTOPRAZOLE 40 MG TABLET.DR PO SCH (08:19)
[2017-08-19] MEDS: FUROSEMIDE 20 MG TABLET PO SCH (08:19)
[2017-08-19] MEDS: MEMANTINE HCL 5 MG TABLET PO SCH (08:19)
[2017-08-19] MEDS: predniSONE 5 MG TABLET PO SCH (08:19)
[2017-08-19] MEDS: QUETIAPINE FUMARATE 25 MG TABLET PO SCH ×2 (08:19→21:43)
[2017-08-19] MEDS: FLUTICASONE/VILANTEROL 1 EACH BLST.W.DEV IH SCH (08:20)
[2017-08-19] MEDS: MEGESTROL ACETATE 40 MG TABLET PO SCH (08:20)
[2017-08-19] MEDS: ATENOLOL 25 MG TABLET PO SCH (08:20)
[2017-08-19] MEDS ORDERED: DEXTROSE 50%-WATER 50 ML DISP.SYRIN IV PRN (08:30)
--- NOTE | 2017-08-19 08:45 | NUR ---
MS RN NOTES PT SEEN AND EXAMINED BY DR. HERNANDEZ W/ ORDERS NOTED AND CARRIED OUT. PER MANUFACTURING BUSINESS ANALYST, SON WANTED AN ORDER FOR HIS MOM FOR SPUTUM CULTURE. PER DR. HERNANDEZ, "NO NEED."
[2017-08-19] MEDS ORDERED: VALSARTAN 80 MG TABLET PO PRN (09:00)
[2017-08-19] MEDS: BLOOD SUGAR DIAGNOSTIC 1 EACH STRIP IN SCH ×4 (09:22→21:43)
--- NOTE | 2017-08-19 10:34 | NUR ---
MS RN NOTES URINE SPECIMEN COLLECTED. LAB MADE AWARE FOR WOODWORKING CRAFTSMAN.
[2017-08-19] MEDS: INSULIN REGULAR, HUMAN 100 UNIT/ML 3 ML VIAL SQ PRN ×3 (12:08→21:46)
[2017-08-19] MEDS: IBUPROFEN 400 MG TABLET PO SCH (12:58)
[2017-08-19 14:22] LABS: APPEARANCE,URINE SL CLOUDY (CLEAR); BILIRUBIN,URINE NEGATIVE (NEGATIVE); BLOOD, URINE TRACE-INTA Ery/uL (NEGATIVE); COLOR,URINE YELLOW (YELLOW); KETONES,URINE NEGATIVE (NEGATIVE); LEUKOCYTE ESTERASE ,URINE 1+ (NEGATIVE); NITRITE, URINE POSITIVE (NEGATIVE); PH,URINE 5.5 (5.0-8.0); PROTEIN,URINE TRACE mg/dl (NEGATIVE); UGLUCOSE 1+ mg/dL (NEGATIVE); UROBILINOGEN,URINE 0.2 EU/dL (0.2)
[2017-08-19 14:41] LABS: BACTERIA,URINE Many /HPF (None Seen); SQUAMOUS EPITHELIAL CELL,UR Few /HPF (None Seen)
--- NOTE | 2017-08-19 15:00 | NUR ---
MS RN NOTES DR. HERNANDEZ MADE AWARE OF UA RESULTS AND CULTURE PENDING W/ ORDERS TO START ROCEPHIN 1 GM IV Q24 HOURS. NOTED AND CARRIED OUT.
[2017-08-19 16:00] VITALS: BP_SYST 126; BP_SYST 129; BP_DIAS 56
[2017-08-19] MEDS: ALBUTEROL SULFATE 2 MG TABLET PO SCH (16:37)
[2017-08-19] MEDS: OLOPATADINE HCL 0.1% OPHTH BOTTLE EACHEYE SCH (16:37)
[2017-08-19] MEDS: CEFTRIAXONE 1 G in IV D5W 50 ML IV SCH (18:15)
--- NOTE | 2017-08-19 18:42 | NUR ---
MS RN CLOSING NOTES ALL DUE MEDS GIVEN, NEEDS MET AND RENDERED. AWAKE AND RESPONSIVE. RESPIRATIONS ARE EVEN AND UNLABORED, NOT IN ANY ACUTE DISTRESS NOTED. NO FACIAL GRIMACING OR MOANING NOTED. IV SITE INTACT, NO INFILTRATION NOTED. DRESSING KEPT CLEAN AND DRY. SAFETY MEASURES ARE IN PLACE. CALL LIGHT IS LEFT WITHIN REACH. WILL ENDORSE TO NEXT SHIFT FOR CONTINUITY OF CARE.
--- NOTE | 2017-08-19 19:20 | NUR ---
rn initial notes: received report from betsy mcdaniel . pt in bed, lady caregiver at bed side, pt is cape verdean speaking only, a/o x2, more awake, on 2l via nc respiration even and unlabored, denies any pain or discomfort at this time. as translated by lady caregiver. caregiver said she will be leaving soon. iv acces patent and flushing well, infusing with ns at 75ml/hr. discussed with pt and caregiver about plan of care. safety precautions for fall initiated, call light in reach, will continue monitoring pt.
[2017-08-19 20:00] VITALS: BP_SYST 111; BP_SYST 117; BP_DIAS 56
--- NOTE | 2017-08-19 21:00 | NUR ---
MOTRIN 400MG NON ADMIN: PT TOOK MOTRIN AT 1258, ORDER IS Q12HRS, NEXT SCHEDULE SHOULD BE 1258MN, ITS ONLY 8HRS SINCE LAST ADMINISTRATION. IT SHOWING ON EMAR ITS DUE FOR 2099, IT IS NORMALLY SCHEDULED FOR 0900AM AND 2100, BUT DUE TO DELAYED/LATE ADMIN DURING THE DAY, THE NEXT DOSE IS ALSO AFFECTED.
[2017-08-19] MEDS: ENOXAPARIN SODIUM 30 MG/0.3 ML DISP.SYRIN SQ SCH (21:44)
--- NOTE | 2017-08-19 21:46 | NUR ---
BS 188: BS 188, 3UNITS OF INSULIN GIVEN PER SLIDING SCALE, PT ON CARDIAC DIET TOLERATING PO INTAKE WELL
--- NOTE | 2017-08-19 22:29 | NUR ---
RN NOTES: ASSISTED SAP DATA ANALYST IN PROVIDING BED BATH TO THE PT, PT HAD 1 LARGE BM, NEEDING THOROUGH CLEANING, ALSO DIAPER WET FROM URINE, NO SKIN ISSUES NOTED, APPLIED Z GUARD FOR PROTECTIONS AND PREVENTION, MEPILEX APPLIED FOR CUSHION, ALSO PT ON REMY MATTRESS.
--- NOTE | 2017-08-19 23:12 | NUR ---
RN NOTES: PT RESTING WELL, SLEEPING AND SNORING. NO FACIAL GRIMACE NOTED NOTED, REMAINS ON 2L O2 VIA NC, NO SOB NOTED
[2017-08-20] MEDS: IBUPROFEN 400 MG TABLET PO SCH ×3 (00:05→22:36)
--- NOTE | 2017-08-20 00:06 | NUR ---
LATE ADMINISTRATION OF MOTRIN: MOTRIN SCHEDULED Q12HR HOWEVER DURING THE DAY IT WAS ADMINISTERED AT 1258 NOON, NEXT DOSE SCHEDULED AT 2100 HOWEVER ITS ONLY BEEN 8HRS SINCE PT LAST TOOK THE MEDICINE. MOTRIN 400MG TAB ADMINISTERED AT THIS TIME.
[2017-08-20] MEDS: IV NS 0.9% 1,000 ML IV PRN ×2 (00:11→22:38)
--- NOTE | 2017-08-20 01:14 | NUR ---
RN NOTES: SEEN PT SLEEPING, APPEARS CALM AND COMFORTABLE, NO SOB NOTED, WILL CONTINUE MONITORING PT
--- NOTE | 2017-08-20 06:08 | NUR ---
RN NOTES: ANOTHER BED BATH PROVIDED TO THE PT PT HAD ANOTHER LARGE SOFT BM
[2017-08-20] MEDS: BLOOD SUGAR DIAGNOSTIC 1 EACH STRIP IN SCH ×4 (06:11→21:42)
[2017-08-20] MEDS: INSULIN REGULAR, HUMAN 100 UNIT/ML 3 ML VIAL SQ PRN ×3 (06:12→22:40)
--- NOTE | 2017-08-20 06:12 | NUR ---
BS 79: BS 79, NO INSULIN COVERAGE GIVEN, PT GIVEN CRANBERRY JUICE PT ABLE TO DRINK IT 50%
[2017-08-20 06:27] LABS: BASOPHILS % (AUTO) 0.3 % (0.0-2.0); EOSINOPHILS % (AUTO) 0.7 % (0.0-6.0); HEMATOCRIT 31 % (33-45); HEMOGLOBIN 10.1 g/dL (11.5-14.8); LYMPHOCYTES # (AUTO) 1.7 /CMM (0.8-4.8); LYMPHOCYTES % (AUTO) 15.6 % (20.0-44.0); MEAN CORPUSCULAR HGB CONC 33 g/dl (31.0-36.0); MEAN CORPUSCULAR VOLUME 94 fL (82-100); MONOCYTES # (AUTO) 0.7 /CMM (0.1-1.30); MONOCYTES % (AUTO) 6.6 % (2.0-12.0); NEUTROPHILS # (AUTO) 8.3 /CMM (1.8-8.9); NEUTROPHILS % (AUTO) 76.8 % (43.0-81.0); PLATELET COUNT (AUTO) 166 /CMM (150-450); RDW COEFFICIENT OF VARIATION 13.9 (11.5-15.0); RED BLOOD CELL COUNT(AUTO) 3.26 MIL/uL (4.0-5.2); WHITE BLOOD COUNT (AUTO) 10.8 K/uL (4.3-11.0)
--- NOTE | 2017-08-20 06:43 | NUR ---
RN CLOSING NOTES: PT IN BED, AWAKE, REMAINS ON 2L VIA NC RESPIRATION EVEN AND UNLABORED. IV ACCESS REMAINS PATENT AND FLUSHING WELL, INFUSING WITH NS AT 75ML/HR. BLE OFFLOADED. PT ON REMY MATTRESS. VS REMAINS STABLE, NEEDS ATTENDED. SAFETY PRECAUTIONS FOR FALL REMAINS ENGAGED, CALL LIGHT IN REACH, WILL ENDORSE TO DAY RN FOR REINIER.
[2017-08-20 06:47] LABS: CALCIUM, SERUM 8.4 mg/dL (8.5-10.1); CARBON DIOXIDE 30 mmol/L (21-32); CHLORIDE 107 mmol/L (98-107); CREATININE 1.3 mg/dL (0.6-1.3); GLUCOSE 84 mg/dL (74-106); MAGNESIUM 1.8 mg/dL (1.8-2.4); POTASSIUM 4.1 mmol/L (3.5-5.1); SODIUM SERUM 141 mmol/L (136-145); UREA NITROGEN, BLOOD 24 mg/dL (7-18)
--- NOTE | 2017-08-20 07:00 | NUR ---
MS LARES OPENING NOTES PATIENT WAS TAKEN DOWN TO OPERATION ROOM FOR SURGERY OF THE RIGHT HIP. WILL CONTINUE TO MONITOR ONCE PATIENT RETURNS TO THE UNIT. Addendum: 08/20/17 at 0740 by CHRIS COLON RN CHARTED ON WRONG PATIENT. PLEASE DISREGARD THIS DOCUMENTATION.
--- NOTE | 2017-08-20 07:30 | NUR ---
MS RN OPENING NOTES RECEIVED PATIENT IN STABLE CONDITION. IN NO APPARENT DISTRESS. BEDSIDE RAILS ARE UPX2. BED IS LOCKED AND LOWERED. CALL LIGHT IS WITHIN REACH. IV LINE IS INTACT AND PATENT. WILL CONTINUE TO MONITOR.
[2017-08-20 08:00] VITALS: BP 131/64
[2017-08-20] MEDS: MEMANTINE HCL 5 MG TABLET PO SCH (08:15)
[2017-08-20] MEDS: predniSONE 5 MG TABLET PO SCH (08:15)
[2017-08-20] MEDS: MEGESTROL ACETATE 40 MG TABLET PO SCH (08:15)
[2017-08-20] MEDS: PANTOPRAZOLE 40 MG TABLET.DR PO SCH (08:16)
[2017-08-20] MEDS: FUROSEMIDE 20 MG TABLET PO SCH (08:17)
[2017-08-20] MEDS: FLUTICASONE/VILANTEROL 1 EACH BLST.W.DEV IH SCH (08:17)
[2017-08-20] MEDS: ATENOLOL 25 MG TABLET PO SCH (08:17)
[2017-08-20] MEDS: QUETIAPINE FUMARATE 25 MG TABLET PO SCH ×2 (08:17→22:37)
[2017-08-20] MEDS: ESCITALOPRAM OXALATE (10 MG) 10 MG TABLET PO SCH (08:17)
[2017-08-20] MEDS: ALBUTEROL SULFATE 2 MG TABLET PO SCH ×2 (08:18→16:34)
[2017-08-20] MEDS: OLOPATADINE HCL 0.1% OPHTH BOTTLE EACHEYE SCH ×2 (08:18→16:35)
[2017-08-20 16:00] VITALS: BP 104/45
[2017-08-20] MEDS: CEFTRIAXONE 1 G in IV D5W 50 ML IV SCH (17:50)
--- NOTE | 2017-08-20 18:17 | NUR ---
MS RN CLOSING NOTES PATIENT IS IN STABLE CONDITION. IN NO APPARENT DISTRESS. BEDSIDE RAILS ARE UPX2. BED IS LOCKED AND LOWERED. CALL LIGHT IS WITHIN REACH. ALL NEEDS WERE MET. WILL ENDORSE CARE TO EMERGENCY MANAGEMENT CONSULTANT NURSE FOR REINIER. IV LINE IS INTACT AND PATENT.
--- NOTE | 2017-08-20 19:40 | NUR ---
RN MS OPENING NOTES RECEIVED PATIENT IN BED AWAKE ALERT AND ORIENTED X 2, VERBALLY RESPONSIVE, RESPIRATIONS EVEN AND UNLABORED WITH EQUAL RISE AND FALL OF CHEST, NO DISTRESS PRESENT, NO COMPLAINT OF PAIN OR DISCOMFORT, NO FACIAL GRIMACING PRESENT, IV SITE TO RIGHT AC INTACT AND PATENT, NO REDNESS NO INFILTRATION PRESENT, IVF FLUID RUNNING ORDERED, FLUIDS OFFERED TOLERATED, ORIENTED TO CALL [place] , LOW BED LOCKED CALL ALARM ON , SAFETY MEASURES IN PLACE, ALL NEEDS ATTENDED AT THIS TIME , REMAINS COMFORTABLE , WILL CONTINUE TO MONITOR AND MONITOR FOR DRYNESS AND CONTINUE REPOSITIONING.
[2017-08-20 20:00] VITALS: BP 119/65
[2017-08-20] MEDS: ENOXAPARIN SODIUM 30 MG/0.3 ML DISP.SYRIN SQ SCH (22:38)
--- NOTE | 2017-08-20 23:55 | NUR ---
RN MS CLOSING NOTES REPORT GIVEN TO RECEIVING NURSE PATIENT LEFT IN COMFORTABLE AND STABLE CONDITION
--- NOTE | 2017-08-21 | NUR ---
MS MINDI NOTES GOT REPORT FROM ANOTHER NURSE FOR CONTINUITY OF CARE. PT SLEEPING COMFORTABLY IN BED AT THIS TIME. NO SIGNS OF ANY ACUTE DISTRESS NOTED. IVF STILL INFUSING. KEPT HER WARM AND COMFORTABLE AT ALL TIMES. WILL CONTINUE TO MONITOR. BED ALARM SET FOR SAFETY. WILL CONTINUE TO MONITOR. PLACE CALL LIGHT AT REACH.
[2017-08-21 06:05] LABS: BASOPHILS % (AUTO) 0.2 % (0.0-2.0); EOSINOPHILS % (AUTO) 1.3 % (0.0-6.0); HEMATOCRIT 30 % (33-45); HEMOGLOBIN 9.9 g/dL (11.5-14.8); LYMPHOCYTES # (AUTO) 1.8 /CMM (0.8-4.8); LYMPHOCYTES % (AUTO) 20.8 % (20.0-44.0); MEAN CORPUSCULAR HGB CONC 33 g/dl (31.0-36.0); MEAN CORPUSCULAR VOLUME 94 fL (82-100); MONOCYTES # (AUTO) 0.6 /CMM (0.1-1.30); MONOCYTES % (AUTO) 6.5 % (2.0-12.0); NEUTROPHILS # (AUTO) 6.2 /CMM (1.8-8.9); NEUTROPHILS % (AUTO) 71.2 % (43.0-81.0); PLATELET COUNT (AUTO) 183 /CMM (150-450); RDW COEFFICIENT OF VARIATION 13.9 (11.5-15.0); RED BLOOD CELL COUNT(AUTO) 3.16 MIL/uL (4.0-5.2); WHITE BLOOD COUNT (AUTO) 8.6 K/uL (4.3-11.0)
[2017-08-21] MEDS: BLOOD SUGAR DIAGNOSTIC 1 EACH STRIP IN SCH ×4 (06:08→21:28)
[2017-08-21 06:21] LABS: CALCIUM, SERUM 8.3 mg/dL (8.5-10.1); CARBON DIOXIDE 28 mmol/L (21-32); CHLORIDE 108 mmol/L (98-107); CREATININE 1.3 mg/dL (0.6-1.3); GLUCOSE 88 mg/dL (74-106); MAGNESIUM 1.6 mg/dL (1.8-2.4); POTASSIUM 3.9 mmol/L (3.5-5.1); SODIUM SERUM 143 mmol/L (136-145); UREA NITROGEN, BLOOD 24 mg/dL (7-18)
--- NOTE | 2017-08-21 07:41 | NUR ---
MS MRP CONTROLLER CLOSING NOTES PT RESTING AT THIS TIME AFTER NEW IV LINE INSERTED ON HER RIGHT WRIST SECURED WITH KERLIX . ALL DUE MEDS GIVEN AND ALL NEEDS MET. BLOOD SUGAR 103 NO COVERAGE GIEVN NO SIGNS OF HYPO GLYCEMIA NOTED. STABLE CHELITA THE NIGHT .SLEPT ON AND OFF. KEPT HER WARM AND COMFORTABLE AT ALL TIMES. ENDORSE.
--- NOTE | 2017-08-21 07:47 | NUR ---
MS RN NOTES Patient received in bed, asleep, easily arousable. No complaints of pain at this moment. Not in any type of distress. Safety measures in place. Bed in lowest position with bed alarm on. Call light within reach. Will continue to monitor patient
[2017-08-21 08:00] VITALS: BP 144/67
[2017-08-21] MEDS: FUROSEMIDE 20 MG TABLET PO SCH (08:04)
[2017-08-21] MEDS: MEGESTROL ACETATE 40 MG TABLET PO SCH (08:04)
[2017-08-21] MEDS: IBUPROFEN 400 MG TABLET PO SCH ×2 (08:04→21:25)
[2017-08-21] MEDS: FLUTICASONE/VILANTEROL 1 EACH BLST.W.DEV IH SCH (08:04)
[2017-08-21] MEDS: ATENOLOL 25 MG TABLET PO SCH (08:05)
[2017-08-21] MEDS: predniSONE 5 MG TABLET PO SCH (08:05)
[2017-08-21] MEDS: PANTOPRAZOLE 40 MG TABLET.DR PO SCH (08:05)
[2017-08-21] MEDS: ESCITALOPRAM OXALATE (10 MG) 10 MG TABLET PO SCH (08:05)
[2017-08-21] MEDS: MEMANTINE HCL 5 MG TABLET PO SCH (08:05)
[2017-08-21] MEDS: ALBUTEROL SULFATE 2 MG TABLET PO SCH ×2 (08:06→17:08)
[2017-08-21] MEDS: QUETIAPINE FUMARATE 25 MG TABLET PO SCH ×2 (08:06→21:26)
[2017-08-21] MEDS: OLOPATADINE HCL 0.1% OPHTH BOTTLE EACHEYE SCH ×2 (08:07→17:06)
[2017-08-21] MEDS: Magnesium 1GM/D5W 100ML PREMIX 100 ML IV SCH ×2 (10:27→11:44)
[2017-08-21] MEDS: INSULIN REGULAR, HUMAN 100 UNIT/ML 3 ML VIAL SQ PRN ×2 (15:32→17:36)
[2017-08-21 16:00] VITALS: BP 129/64
[2017-08-21] MEDS: CEFTRIAXONE 1 G in IV D5W 50 ML IV SCH (18:00)
--- NOTE | 2017-08-21 18:44 | NUR ---
MS RN CLOSING NOTES Patient in bed and awake. Patient remained stable through the whole shift. On oxygen with no SOB or apparent distress noted or reported. No complaints of pain. Magnesium replacement done. CXR, Labs and ECG for tomorrow, 08/22/17. IV on Right wrist #[id number] covered with arm sleeves to prevent from pulling: patent and intact. Safety measures in place. Bed in lowest position with bed alarm on and call light within reach. Possible discharge tomorrow. Will endorse to oncoming shift.
--- NOTE | 2017-08-21 19:48 | NUR ---
RN MS OPENING NOTES RECEIVED PATIENT IN BED AWAKE ALERT AND ORIENTED X 2, VERBALLY RESPONSIVE, RESPIRATIONS EVEN AND UNLABORED WITH EQUAL RISE AND FALL OF CHEST, NO DISTRESS PRESENT, ON 02 2 LITERS VIA NC, NO COMPLAINT OF PAIN OR DISCOMFORT, NO FACIAL GRIMACING PRESENT, IV SITE TO RIGHT WRIST INTACT AND PATENT, NO REDNESS NO INFILTRATION PRESENT, FLUIDS OFFERED TOLERATED, ORIENTED TO CALL M[facility] , LOW BED LOCKED CALL ALARM ON ,CALL LIGHT KEPT WITHIN REACH, SAFETY MEASURES IN PLACE, ALL NEEDS ATTENDED AT THIS TIME , REMAINS COMFORTABLE , WILL CONTINUE TO MONITOR AND MONITOR FOR DRYNESS AND CONTINUE REPOSITIONING.
[2017-08-21 19:58] VITALS: BP 125/50
[2017-08-21 20:00] VITALS: BP 133/52
[2017-08-21] MEDS: ENOXAPARIN SODIUM 30 MG/0.3 ML DISP.SYRIN SQ SCH (21:27)
--- NOTE | 2017-08-21 21:40 | NUR ---
rn ms notes blood sugar 113 per sliding scale no insulin needed at this time. none administered.
[2017-08-22] MEDS: PANTOPRAZOLE 40 MG TABLET.DR PO SCH (06:36)
[2017-08-22] MEDS: BLOOD SUGAR DIAGNOSTIC 1 EACH STRIP IN SCH ×4 (06:40→22:42)
[2017-08-22 06:44] LABS: BASOPHILS % (AUTO) 0.2 % (0.0-2.0); EOSINOPHILS % (AUTO) 1.1 % (0.0-6.0); HEMATOCRIT 30 % (33-45); HEMOGLOBIN 9.8 g/dL (11.5-14.8); LYMPHOCYTES # (AUTO) 2.3 /CMM (0.8-4.8); LYMPHOCYTES % (AUTO) 29.2 % (20.0-44.0); MEAN CORPUSCULAR HGB CONC 33 g/dl (31.0-36.0); MEAN CORPUSCULAR VOLUME 95 fL (82-100); MONOCYTES # (AUTO) 0.5 /CMM (0.1-1.30); MONOCYTES % (AUTO) 6.8 % (2.0-12.0); NEUTROPHILS % (AUTO) 62.7 % (43.0-81.0); PLATELET COUNT (AUTO) 208 /CMM (150-450); RDW COEFFICIENT OF VARIATION 13.6 (11.5-15.0); RED BLOOD CELL COUNT(AUTO) 3.16 MIL/uL (4.0-5.2)
--- NOTE | 2017-08-22 06:44 | NUR ---
rn ms notes bs 101 no insulin needed at this per sliding scale,none given.
[2017-08-22 06:47] LABS: CALCIUM, SERUM 8.3 mg/dL (8.5-10.1); CARBON DIOXIDE 31 mmol/L (21-32); CHLORIDE 108 mmol/L (98-107); CREATININE 1.2 mg/dL (0.6-1.3); GLUCOSE 88 mg/dL (74-106); MAGNESIUM 2.1 mg/dL (1.8-2.4); SODIUM SERUM 144 mmol/L (136-145); UREA NITROGEN, BLOOD 19 mg/dL (7-18)
--- NOTE | 2017-08-22 07:10 | NUR ---
RN INITIAL NOTES: PATIENT RESTING IN BED. NONLABORED BREATHING NOTED ON ROOM AIR. NO FACIAL GRIMACING NOTED. IV SITE ON RIGHT WRIST PATENT AND INTACT. BED IN LOWEST LOCKED POSITION. CALL LIGHT WITHIN REACH.
--- NOTE | 2017-08-22 07:13 | NUR ---
RN MS CLOSING NOTES PATIENT IN BED AWAKE ALERT AND ORIENTED X 2, VERBALLY RESPONSIVE, RESPIRATIONS EVEN AND UNLABORED WITH EQUAL RISE AND FALL OF CHEST, NO DISTRESS PRESENT, ON 02 2 LITERS VIA NC, NO COMPLAINT OF PAIN OR DISCOMFORT, NO FACIAL GRIMACING PRESENT, IV SITE TO RIGHT WRIST INTACT AND PATENT, NO REDNESS NO INFILTRATION PRESENT, FLUIDS OFFERED TOLERATED, LOW BED LOCKED CALL ALARM ON ,CALL LIGHT KEPT WITHIN REACH, SAFETY MEASURES IN PLACE, ALL NEEDS ATTENDED AT THIS TIME , REMAINS COMFORTABLE , WILL CONTINUE TO MONITOR AND ENDORSE TO NEXT SHIFT, REPOSITIONING DONE THROUGHOUT SHIFT. SKIN REMAINS INTACT.
[2017-08-22 08:00] VITALS: BP 123/74
[2017-08-22] MEDS ORDERED: NITROFURANTOIN/NITROFURAN MAC 100 MG CAPSULE PO SCH (09:00)
[2017-08-22] MEDS: IBUPROFEN 400 MG TABLET PO SCH ×2 (09:43→21:21)
[2017-08-22] MEDS: QUETIAPINE FUMARATE 25 MG TABLET PO SCH ×2 (09:43→21:23)
[2017-08-22] MEDS: ESCITALOPRAM OXALATE (10 MG) 10 MG TABLET PO SCH (09:44)
[2017-08-22] MEDS: MEMANTINE HCL 5 MG TABLET PO SCH (09:44)
[2017-08-22] MEDS: FUROSEMIDE 20 MG TABLET PO SCH (09:45)
[2017-08-22] MEDS: predniSONE 5 MG TABLET PO SCH (09:45)
[2017-08-22] MEDS: MEGESTROL ACETATE 40 MG TABLET PO SCH (09:46)
[2017-08-22] MEDS: ATENOLOL 25 MG TABLET PO SCH (09:46)
[2017-08-22] MEDS: ALBUTEROL SULFATE 2 MG TABLET PO SCH ×2 (09:46→17:48)
[2017-08-22] MEDS: FLUTICASONE/VILANTEROL 1 EACH BLST.W.DEV IH SCH (09:48)
[2017-08-22] MEDS: OLOPATADINE HCL 0.1% OPHTH BOTTLE EACHEYE SCH ×2 (09:52→17:45)
--- NOTE | 2017-08-22 12:20 | NUR ---
RN NOTES: BLOOD SUGAR NOTED TO BE 155, INSULIN HELD, PATIENT CONSUMED LUNCH EARLIER
[2017-08-22] MEDS: MEROPENEM 500 MG in IV NS 0.9% 50 ML IV SCH (15:56)
[2017-08-22 16:00] VITALS: BP 124/64
[2017-08-22] MEDS: INSULIN REGULAR, HUMAN 100 UNIT/ML 3 ML VIAL SQ PRN ×2 (17:44→22:41)
--- NOTE | 2017-08-22 19:10 | NUR ---
RN NOTES: PATIENT RESTING IN BED. NONLABORED BREATHING NOTED ON ROOM AIR. NO FACIAL GRIMACING NOTED. IV SITE ON RIGHT WRIST PATENT AND INTACT. BED IN LOWEST LOCKED POSITION. CALL LIGHT WITHIN REACH. PATIENT KEPT CLEAN AND DRY THROUGHOUT SHIFT, TURNED AND REPOSITIONED EVERY 2 HOURS. ENDORSED TO NEXT SHIFT
--- NOTE | 2017-08-22 19:35 | NUR ---
RN MS OPENING NOTES RECEIVED PATIENT IN BED, AWAKE, A & O X 2, VERBALLY RESPONSIVE, RESPIRATIONS EVEN AND UNLABORED, NO DISTRESS PRESENT, ON O2 2 LPM VIA NC, NO C/O OF PAIN OR DISCOMFORT, NO FACIAL GRIMACING PRESENT. HAD BM X 1 IN AM SHIFT, PER AM RN. NO ENEMA NEEDED. IV SITE TO RIGHT WRIST INTACT AND PATENT, SL, NO REDNESS NO INFILTRATION PRESENT. ORIENTED TO CALL MCGHEE. BED IN LOW/LOCKED POSITION. BED ALARM ON ,CALL LIGHT KEPT WITHIN REACH, SAFETY MEASURES IN PLACE, ALL NEEDS ATTENDED AT THIS TIME , REMAINS COMFORTABLE. WILL CONTINUE TO MONITOR CLOSELY FOR ANY REINIER, SAFETY & COMFORT.
[2017-08-22 19:52] VITALS: BP 146/67
[2017-08-22] MEDS: ENOXAPARIN SODIUM 30 MG/0.3 ML DISP.SYRIN SQ SCH (21:22)
--- NOTE | 2017-08-23 02:00 | NUR ---
MS RN NOTE PT NOTED TO BE SLEEPING INTERMITTENTLY, NO REINIER NOTED. ON 1:1 SITTER NEXT OT HER BED FOR SAFETY & COMFORT. PT ATTEMPTS TO REMOVE IV LINE @ TIMES, A & O X 1, CONFUSED DUE TO HX OF DEMENTIA. KEPT SAFE & COMFORTABLE. MONITORING CLOSELY FOR SAFETY & COMFORT.
[2017-08-23] MEDS: MEROPENEM 500 MG in IV NS 0.9% 50 ML IV SCH ×2 (02:54→15:50)
--- NOTE | 2017-08-23 03:07 | NUR ---
PRN ATIVAN GIVEN PT NOTED TO BE ANXIOUS, ATTEMPTING TO GET OUT OF BED & GETS AGITATED WHEN REDIRECTED. ON 1:1 SITTER FOR SAFETY. PT HAD MULTIPLE ANXIOUS EPISODES TONIGHT, PRN ATIVAN GIVEN ORDERED. WILL MONITOR FOR THE EFFECTIVENESS.
--- NOTE | 2017-08-23 06:52 | NUR ---
RN MS CLOSING NOTES PATIENT SLEPT INTERMITTENTLY @ NIGHT, AWAKE, A & O X 1, CONFUSED, VERBALLY RESPONSIVE, RESPIRATIONS EVEN AND UNLABORED, NO DISTRESS PRESENT, ON O2 2 LPM VIA NC, NO C/O OF PAIN OR DISCOMFORT, NO FACIAL GRIMACING PRESENT. IV SITE TO RIGHT WRIST INTACT AND PATENT, SL, NO REDNESS NO INFILTRATION PRESENT. ON 1:1 SITTER. BED IN LOW/LOCKED POSITION. BED ALARM ON ,CALL LIGHT KEPT WITHIN REACH, SAFETY MEASURES IN PLACE, ALL NEEDS ATTENDED AT THIS TIME , REMAINS COMFORTABLE. WILL ENDORSE TO AM RN.
[2017-08-23] MEDS: BLOOD SUGAR DIAGNOSTIC 1 EACH STRIP IN SCH ×4 (07:00→21:41)
[2017-08-23 08:00] VITALS: BP 154/73
[2017-08-23] MEDS: PANTOPRAZOLE 40 MG TABLET.DR PO SCH (08:13)
[2017-08-23] MEDS: ESCITALOPRAM OXALATE (10 MG) 10 MG TABLET PO SCH (08:32)
[2017-08-23] MEDS: FUROSEMIDE 20 MG TABLET PO SCH (08:33)
[2017-08-23] MEDS: MEMANTINE HCL 5 MG TABLET PO SCH (08:33)
[2017-08-23] MEDS: IBUPROFEN 400 MG TABLET PO SCH ×2 (08:34→21:40)
[2017-08-23] MEDS: ATENOLOL 25 MG TABLET PO SCH (08:34)
[2017-08-23] MEDS: QUETIAPINE FUMARATE 25 MG TABLET PO SCH ×2 (08:35→21:40)
[2017-08-23] MEDS: predniSONE 5 MG TABLET PO SCH (08:35)
[2017-08-23] MEDS: ALBUTEROL SULFATE 2 MG TABLET PO SCH ×2 (08:36→17:41)
[2017-08-23] MEDS: MEGESTROL ACETATE 40 MG TABLET PO SCH (08:43)
[2017-08-23] MEDS: FLUTICASONE/VILANTEROL 1 EACH BLST.W.DEV IH SCH (08:43)
[2017-08-23] MEDS: OLOPATADINE HCL 0.1% OPHTH BOTTLE EACHEYE SCH ×2 (08:44→16:17)
[2017-08-23 10:21] VITALS: BP 128/50
--- NOTE | 2017-08-23 12:38 | NUR ---
176- BLOOD SUGAR, INSULIN HELD PATIENT REFUSING TO EAT
--- NOTE | 2017-08-23 12:40 | NUR ---
PER LYNDA DAWSON. VERBAL READBACK
[2017-08-23] MEDS ORDERED: NA PHOS,M-B/NA PHOS,DI-BA 1 EA ENEMA RC PRN (13:00)
[2017-08-23 16:00] VITALS: BP 122/70
[2017-08-23] MEDS: INSULIN REGULAR, HUMAN 100 UNIT/ML 3 ML VIAL SQ PRN ×2 (17:47→21:48)
--- NOTE | 2017-08-23 18:17 | NUR ---
rn notes: dvt pumps per orders and protocol
--- NOTE | 2017-08-23 18:50 | NUR ---
DR HERNANDEZ AWARE THAT PATIENT HAD BM YESTERDAY. OK TO GIVE ENEMA PER HIS ORDERS
--- NOTE | 2017-08-23 19:15 | NUR ---
MS RN OPENING NOTE RECEIVED PATIENT IN BED, ALERT ORIENTED X2. ON 2L O2 VIA NC. TOLERATING WELL. IN NO APPARENT DISTRESS OR DISCOMFORT AT THIS TIME. RESPIRATIONS EVEN AND UNLABORED. DENIES PAIN AND SOB. PATIENT ABLE TO AMBULATE WITH A WALKER DURING PT. RIGHT WRIST 22G, IVC, SL, PATENT AND INTACT. PATIENT VERBALIZED UNDERSTANDING REGARDING THE USE OF THE CALL LIGHT. GETS CONFUSED AT TIMES BUT ABLE TO VERBALIZE NEEDS. DIAPER IS USED FOR ELIMINATION. PATIENT KEPT CLEAN AND COMFORTABLE, ALL NEEDS ATTENDED. SAFETY MEASURES IN PLACE, ROOM IS NEAR THE NURSE'S STATION, BED IN LOW LOCKED POSITION, SIDE RAILS UP X2, CALL LIGHT WITHIN EASY REACH, WILL CONTINUE TO MONITOR.
--- NOTE | 2017-08-23 19:25 | NUR ---
RN CLOSING NOTES: PATIENT RESTING IN BED. NONLABORED BREATHING NOTED ON 2 L NASAL CANNULA. IV SITE ON RIGHT WRIST GAUGE 22 PATENT AND INTACT. NO FACIAL GRIMACING NOTED. PATIENT AFEBRILE THROUGHOUT SHIFT. KEPT CLEAN AND DRY. TURNED AND REPOSITIONED EVERY 2 HOURS. HEELS OFFLOADED. FALL AND ASPIRATION PRECAUTIONS IMPLEMENTED THROUGHOUT SHIFT NO BOWEL MOVEMENT NOTED YET. ENDORSED TO NEXT SHIFT
[2017-08-23 20:00] VITALS: BP 139/59
[2017-08-23 20:01] VITALS: BP 139/59
[2017-08-23] MEDS: ENOXAPARIN SODIUM 30 MG/0.3 ML DISP.SYRIN SQ SCH (21:41)
[2017-08-24] MEDS: MEROPENEM 500 MG in IV NS 0.9% 50 ML IV SCH (02:14)
[2017-08-24] MEDS: BLOOD SUGAR DIAGNOSTIC 1 EACH STRIP IN SCH ×2 (07:17→12:08)
--- NOTE | 2017-08-24 07:54 | NUR ---
MS RN OPENING NOTES RECEIVED PT FROM NIGHTSHIFT NURSE IN STABLE CONDITION. PT IA A/O X2. NO SOB OR ACUTE SIGNS OF DISTRESS NOTED. BREATHING IS EVEN AND UNLABORED. PT IS ON 2L VIA NC AND SATING WELL. SHE DENIES ANY PAIN AT THIS TIME. IV TO RIGHT WRIST NOTED TO BE PATENT AND INTACT. NO REDNESS OR SIGNS OF DISTRESS NOTED. BED IN LOW LOCKED POSITION, SIDE RAILS UP X3, CALL LIGHT WITHIN REACH, BED ALARM ON, CONTACT ISOLATION OBSERVED. WILL CONTINUE TO MONITOR
[2017-08-24 08:00] VITALS: BP 144/63
--- NOTE | 2017-08-24 08:18 | NUR ---
MS RN CLOSING NOTE PATIENT IN BED, ALERT ORIENTED X2. ON 2L O2 VIA NC. TOLERATING WELL. IN NO APPARENT DISTRESS OR DISCOMFORT AT THIS TIME. RESPIRATIONS EVEN AND UNLABORED. DENIES PAIN AND SOB. PATIENT ABLE TO AMBULATE WITH A WALKER DURING PT. RIGHT WRIST 22G, IVC, SL, PATENT AND INTACT. PATIENT VERBALIZED UNDERSTANDING REGARDING THE USE OF THE CALL LIGHT. GETS CONFUSED AT TIMES BUT ABLE TO VERBALIZE NEEDS. DIAPER IS USED FOR ELIMINATION. PATIENT KEPT CLEAN AND COMFORTABLE, ALL NEEDS ATTENDED. SAFETY MEASURES IN PLACE, ROOM IS NEAR THE NURSE'S STATION, BED IN LOW LOCKED POSITION, SIDE RAILS UP X2, CALL LIGHT WITHIN EASY REACH, WILL ENDORSE TO AM NURSE FOR REINIER.
[2017-08-24 09:16] VITALS: BP 144/63
[2017-08-24] MEDS: MEGESTROL ACETATE 40 MG TABLET PO SCH (09:16)
[2017-08-24] MEDS: PANTOPRAZOLE 40 MG TABLET.DR PO SCH (09:16)
[2017-08-24] MEDS: predniSONE 5 MG TABLET PO SCH (09:16)
[2017-08-24] MEDS: QUETIAPINE FUMARATE 25 MG TABLET PO SCH (09:16)
[2017-08-24] MEDS: IBUPROFEN 400 MG TABLET PO SCH (09:16)
[2017-08-24] MEDS: MEMANTINE HCL 5 MG TABLET PO SCH (09:16)
[2017-08-24] MEDS: ATENOLOL 25 MG TABLET PO SCH (09:16)
[2017-08-24] MEDS: FUROSEMIDE 20 MG TABLET PO SCH (09:16)
[2017-08-24] MEDS: ALBUTEROL SULFATE 2 MG TABLET PO SCH (09:16)
[2017-08-24] MEDS: ESCITALOPRAM OXALATE (10 MG) 10 MG TABLET PO SCH (09:17)
[2017-08-24] MEDS: OLOPATADINE HCL 0.1% OPHTH BOTTLE EACHEYE SCH (09:20)
[2017-08-24] MEDS: FLUTICASONE/VILANTEROL 1 EACH BLST.W.DEV IH SCH (09:54)
[2017-08-24] MEDS: INSULIN REGULAR, HUMAN 100 UNIT/ML 3 ML VIAL SQ PRN (12:08)
--- NOTE | 2017-08-24 13:09 | NUR ---
MS AUTO GARAGE MECHANIC NOTES PT WAS DISCHARGED FROM FACILITY IN STABLE CONDITION. ALL NEEDS WERE MET DURING SHIFT AND ORDERS CARRIED OUT ACCORDINGLY. ALL DUE MEDS GIVEN. AM, CARE RENDERED PRIOR TO D/C. REPORT CALLED AND GIVEN TO TONI THE NURSE WIRE COILER MACHINE OPERATOR AT [facility]. WIRE COILER MACHINE OPERATOR MADE AWARE THAT PT WILL BE LEAVING WITH HER IV SHE IS TO RECEIVED IV ABX THERAPY FOR THE NEXT 5DAYS. SHE WAS ALSO MADE AWARE THAT THE NEXT DOSE WILL BE DUE AT 1500 TODAY SCHEDULED. IV PATENT AND INTACT PRIOR TO D/C. NO REDNESS OR SIGNS OF INFILTRATION NOTED. WIRE COILER MACHINE OPERATOR ALSO MADE AWARE THAT PT IS ON CONTACT ISOLATION FOR ESBL IN HER URINE. ISOLATION ACCOMMODATIONS ARRANGED BY SNF. BELONGINGS VERIFIED PRIOR TO DISCHARGE. PT LEFT WITH ALL BELONGINGS INCLUDING BOTH UPPER AND LOWER DENTURES. VITALS STABLE PRIOR TO D/C. SHE WAS SAFELY TRANSFERRED FROM [facility] TO [facility] AND LEFT VIA AMBULANCE TRANSPORT. PT'S DAUGHTER CALLED AND NOTIFIED OF TRANSPORT.
== END 2017-08-24 13:00 | DRG 871 ==
LOC: MED 17:22
PROVIDERS: ADMIT Legal Medicine; ATTEND Legal Medicine
DX: A41.9 Sepsis, unspecified organism (principal); G93.41 Metabolic encephalopathy; N39.0 Urinary tract infection, site not specified; N17.9 Acute kidney failure, unspecified; E11.9 Type 2 diabetes mellitus without complications; I10 Essential (primary) hypertension; I25.10 Atherosclerotic heart disease of native coronary artery without angina pectoris; I12.9 Hypertensive chronic kidney disease with stage 1 through stage 4 chronic kidney disease, or unspecified chronic kidney disease; N18.3 Chronic kidney disease, stage 3 (moderate); F03.90 Unspecified dementia, unspecified severity, without behavioral disturbance, psychotic disturbance, mood disturbance, and anxiety; E11.65 Type 2 diabetes mellitus with hyperglycemia; E11.22 Type 2 diabetes mellitus with diabetic chronic kidney disease; J44.9 Chronic obstructive pulmonary disease, unspecified; B96.29 Other Escherichia coli [E. coli] as the cause of diseases classified elsewhere; B96.89 Other specified bacterial agents as the cause of diseases classified elsewhere; Z16.12 Extended spectrum beta lactamase (ESBL) resistance; Z16.30 Resistance to unspecified antimicrobial drugs
CPT/HCPCS: 36415; 71045-TC; 80048-TC; 80053-TC; 81000-TC; 82962-TC; 83735-TC; 85025-TC; 87081-TC; 87086-TC; 87186-TC; 93307-TC; 97116-TC; 97530-TC; A4216; J0696; J1650; J1815; J2185; J3475; J7030; J7040; J7060; J7512; Z7610